=== PATIENT | female | born 1945 | race Caucasian/White ===

== ENCOUNTER 2017-12-20 10:11 | Observation (INO) | payer OTHER ==
--- NOTE | 2017-12-20 10:38 | PDOC ---
History of Present Illness - General Chief Complaint: Syncope/Near Syncope Stated Complaint: WOUND Time Seen by Provider: 12/20/17 10:38 - History of Present Illness Initial Comments: 72 year old female with PMH of HTN, HLD, assumed CAD (on plavix), and insomnia presenting 1 day after fall and head trauma. Patient states she has had a cough , depressed, appetite, and worsening general weakness for the past 1.5 days and fell yesterday morning. States she took her Ambien as well as a Benadryl two nights ago then woke up at 5 AM the next morning to use the bathroom. She felt a little weaker than normal and fell in the hallway on the way back from the bathroom and woke up face down on the floor with pain in her right and left hip and bleeding from the back of her left hip. She found broken pieces of a ceramic vase that she keeps on the floor and beleives she was cut on that. Her helped her into bed and she remained in bed all day but was able to ambulate here 12/20/17 11:15 Past History - Past Medical History Allergies/Adverse Reactions: Allergies Allergy/AdvReac Type Severity Reaction Status Date / Time No Known Allergies Allergy Verified 12/20/17 10:13 Home Medications: Ambulatory Orders Amlodipine Besylate [Norvasc -] 5 mg PO DAILY 12/20/17 Atorvastatin Calcium [Lipitor] 30 mg PO HS 12/20/17 Chlorthalidone [Hygroton -] 12.5 mg PO DAILY 12/20/17 Clopidogrel Bisulfate [Plavix] 75 mg PO DAILY 12/20/17 Fenofibrate,Micronized [Fenofibrate] 134 mg PO DAILY 12/20/17 Gabapentin 100 mg PO BID 12/20/17 Gabapentin 100 mg PO BID 12/20/17 Levothyroxine [Synthroid -] 0.05 mg PO DAILY 12/20/17 Metformin HCl [Glucophage] 500 mg PO BID 12/20/17 Metoprolol Succinate [Toprol Xl] 50 mg PO DAILY 12/20/17 Telmisartan [Micardis] 40 mg PO DAILY 12/20/17 Zolpidem Tartrate [Ambien] 10 mg PO HS 12/20/17 COPD: No Diabetes: Yes HTN: Yes Thyroid Disease: Yes - Surgical History Abdominal Surgery: Yes Cholecystectomy: Yes - Suicide/Smoking/Psychosocial Hx Smoking History: Never smoked Have you smoked in the past 12 months: No Information on smoking cessation initiated: No Hx Alcohol Use: No (rarely) Drug/Substance Use Hx: No Substance Use Type: None Review of Systems - Review of Systems Constitutional: No: Chills, Diaphoresis, Fever HEENTM: No: Blurred Vision Respiratory: Yes: Cough Cardiac (ROS): No: Chest Pain, Irregular Heart Rate, Chest Tightness ABD/GI: Yes: Poor Appetite. No: Diarrhea, Nausea, Vomiting : No: Burning, Dysuria, Discharge Musculoskeletal: Yes: Back Pain, Muscle Pain, Muscle Weakness Integumentary: Yes: Lesions. No: Bruising Neurological: Yes: Weakness. No: Headache, Numbness, Paresthesia, Unsteady Gait , Ataxia Psychiatric: No: Anxiety, Depression *Physical Exam - Vital Signs Last Vital Signs Temp Pulse Resp BP Pulse Ox 98.7 F 93 H 18 151/87 100 12/20/17 10:15 12/20/17 10:15 12/20/17 10:15 12/20/17 10:15 12/20/17 10:15 - Physical Exam General Appearance: Yes: Nourished, Appropriately Dressed. No: Apparent Distress HEENT: positive: EOMI, LUI, Normal ENT Inspection, Normal Voice Neck: positive: Trachea midline, Normal Thyroid, Supple. negative: Tender, Rigid Respiratory/Chest: positive: Lungs Clear, Normal Breath Sounds. negative: Chest Tender, Respiratory Distress, Accessory Muscle Use Cardiovascular: positive: Regular Rhythm, Regular Rate Gastrointestinal/Abdominal: positive: Normal Bowel Sounds, Flat, Soft. negative : Tender Musculoskeletal: positive: Normal Inspection. negative: CVA Tenderness Extremity: positive: Normal Capillary Refill, Normal Inspection, Normal Range of Motion Integumentary: positive: Normal Color, Dry, Warm, Other (3 cm laceration that is clean and healed but not well approximated) Neurologic: positive: deaf/hard of hearing specialist II-XII NML intact, Fully Oriented, Alert, Normal Mood/ Affect, Normal Response, Other (was able to stand but seemed weak overall). negative: Motor Strength 5/5 (4/5 globally) ED Treatment Course - LABORATORY CBC & Chemistry Diagram: 12/20/17 11:06 12/20/17 11:18 Medical Decision Making - Medical Decision Making 72 year old female with PMH of CAD, HTN, adn HLD presenting with URI symptosm s /p episode of syncope and head trauma one day prior to presentation. Head CT negative, Flu B positive. EKG demonstrating NSR, rate 87, IN 118, QTc 425, with T-wave inversion III and flattening in AVF. Troponin negative and other labs WNL. Will admit for observation with Dr. Gutierres/ Dr. Rowell for med-surg obs, fluid hydration, and possibly further syncope workup. 12/20/17 12:06 *DC/Admit/Observation/Transfer Diagnosis at time of Disposition: Influenza B - Discharge Dispostion Admit: Yes - Referrals Referrals: Becky Ramsay MD [Primary Care Provider] - - Patient Instructions - Post Discharge Activity
--- NOTE | 2017-12-20 10:40 | PDOC ---
Attending Attestation - HPI HPI: 12/20/17 12:54 The patient is a 72 year old female with a significant PMH of HTN, hyperlipidemia, Plavix use, and insomnia who presents to the emergency department s/p fall and head trauma approximately yesterday morning. The patient states she fell her hallway after leaving the bathroom and woke up face down with bilateral hip pain and left hip bleeding. The patient also states she has had cough, decreased appetite, and generalized weakness over the past 2 days. The patient denies chest pain or shortness of breath. Allergies: NKA PCP: Dr. Becky Ramsay - Physicial Exam PE: 12/20/17 12:54 Vitals: Triage Vital signs reviewed General Appearance: no acute distress, well nourished well developed, Head: Atraumatic, normocephalic Cardiac: Regular rate and rhythm, no murmurs, no rubs, no gallops, Lungs: Clear to auscultation bilateral, good air movement bilaterally, Abdomen: Soft, nondistended, normal bowel sounds, nontender to palpation Extremities: (+) 4 cm superficial laceration to left buttock. Full range of motion to all extremities, no cyanosis, clubbing, or edema Skin: Warm and dry, no rashes or lesions, no petechiae Neuro: AOX3; Cranial Nerves 2-12 grossly intact, Strength intact to all extremities, Sensation intact to all extremities Psych: normal mood, normal affect <Maverick Coello - Last Filed: 12/20/17 12:54> - Resident Resident Name: Deonte Orlando - ED Attending Attestation I have performed the following: I have examined & evaluated the patient, The case was reviewed & discussed with the resident, I agree w/resident's findings & plan, Exceptions are as noted - Medical Decision Making 12/20/17 16:30 The patient is a 72 year old female with a significant PMH of HTN, hyperlipidemia, Plavix use, and insomnia who presents to the emergency department s/p fall and head trauma approximately yesterday morning. The patient states she fell her hallway after leaving the bathroom and woke up face down with bilateral hip pain and left hip bleeding. The patient also states she has had cough, decreased appetite, and generalized weakness over the past 2 days. The patient denies chest pain or shortness of breath. We'll check labs head CT EKG cardiac enzyme observe and reassess Reevaluation patient Flu B positive. Given influenza in the context of syncope we'll observe overnight hydrates symptomatically management and reassess. <Bridger Cool - Last Filed: 12/20/17 16:31>
[2017-12-20] MEDS ORDERED: SODIUM CHLORIDE 500 ML IV STA (10:52)
[2017-12-20 11:39] LABS: BASO % 0.4 % (0-2.0); EOS % 0.4 % (0-4.5); HEMATOCRIT 38.9 % (32.4-45.2); HEMOGLOBIN 13.2 GM/dL (10.7-15.3); LYMPH % 26.9 % (8-40); MCH 30.1 pg (25.7-33.7); MCHC 33.9 g/dl (32.0-36.0); MEAN CELL VOLUME 88.8 fl (80-96); MEAN PLT VOLUME 7.3 fl (7.5-11.1); MONO % 11.2 % (3.8-10.2); NEUT % 61.1 % (42.8-82.8); PLATELET COUNT 354 K/MM3 (134-434); RBC 4.38 M/mm3 (3.60-5.2); RDW 13.6 % (11.6-15.6); WHITE BLOOD COUNT 3.3 K/mm3 (4.0-10.0)
[2017-12-20 11:43] LABS: URINE APPEARANCE CLEAR; URINE BILIRUBIN NEGATIVE (<2.0 mg/dL); URINE BLOOD NEGATIVE (NEGATIVE); URINE COLOR YELLOW; URINE GLUCOSE (UA) 3+ (NEGATIVE); URINE KETONE NEGATIVE (NEGATIVE); URINE LEUK ESTERASE NEGATIVE (NEGATIVE); URINE NITRITE NEGATIVE (NEGATIVE); URINE PROTEIN NEGATIVE (NEGATIVE); URINE UROBILINOGEN NEGATIVE mg/dL (0.2-1.0)
[2017-12-20 12:00] LABS: ALBUMIN 3.8 g/dl (3.4-5.0); ANION GAP 6 (8-16); BILIRUBIN,TOTAL 0.2 mg/dL (0.2-1.0); BLOOD UREA NITROGEN 13 mg/dL (7-18); CALCIUM 8.5 mg/dL (8.5-10.1); CHLORIDE 105 mmol/L (98-107); CO2 25 mmol/L (21-32); CREATININE 0.7 mg/dL (0.55-1.02); GLUCOSE,RANDOM 149 mg/dL (74-106); MAGNESIUM 1.7 mg/dL (1.8-2.4); PHOSPHOROUS 2.4 mg/dL (2.5-4.9); POTASSIUM 3.7 mmol/L (3.5-5.1); SGOT/AST 27 U/L (15-37); SGPT/ALT 36 U/L (12-78); SODIUM 136 mmol/L (136-145); TOT PROT 7.3 g/dl (6.4-8.2)
[2017-12-20 12:03] LABS: ALK PHOS 58 U/L (45-117); N-TERMINAL BNP 10.48 pg/ml (5-125)
[2017-12-20] MEDS ORDERED: SODIUM CHLORIDE 0.9% 500 ML INFUS.BAG IV ONE (12:27)
[2017-12-20] MEDS ORDERED: OSELTAMIVIR PHOSPHATE 75 MG CAPSULE ONE (13:24)
[2017-12-20] MEDS: OSELTAMIVIR PHOSPHATE 75 MG CAPSULE PO SCH ×2 (13:35→21:24)
[2017-12-20] MEDS ORDERED: BACITRACIN 0.9 GM PACKET ONE (16:01)
[2017-12-20 16:43] VITALS: BMI 25.9
[2017-12-20] MEDS ORDERED: DIPHTH,PERTUSS(ACELL),TET 0.5 ML DISP.SYRIN IM ONE (16:47)
[2017-12-20] MEDS: SODIUM CHLORIDE 1,000 ML IV SCH (18:13)
[2017-12-20] MEDS: ACETAMINOPHEN 325 MG TABLET (FP) PO PRN (20:09)
--- NOTE | 2017-12-20 20:22 | HP ---
Admitting History and Physical - Primary Care Physician PCP: Becky Ramsay - Admission Chief Complaint: fell down History of Present Illness: patient seen and examined on the floor. Chart reviewed Case was discussed with emergency room physician As per emergency room notes--- The patient is a 72 year old female with a significant PMH of HTN, hyperlipidemia, coronary artery disease ,diabetes, hypothyroidism, and obesity and insomnia who presents to the emergency department s/p fall and head trauma approximately yesterday morning. The patient states she fell her hallway after leaving the bathroom and woke up face down with bilateral hip pain and left hip bleeding. The patient also states she has had cough, decreased appetite, and generalized weakness over the past 2 days. The patient denies chest pain or shortness of breath. workup done in the emergency room----came back positive for influenza B Patient given fluids and Tamiflu Chest x-ray was negative as well as CT head X-rays are negative also for any fracture Patient seen and examined on the floor feels better But still weak No distress. History Source: Patient Limitations to Obtaining History: No Limitations - Past Medical History Cardiovascular: Yes: CAD. No: Aneurysm - Smoking History Smoking history: Never smoked Have you smoked in the past 12 months: No - Alcohol/Substance Use Hx Alcohol Use: No (rarely) Home Medications - Allergies Allergies/Adverse Reactions: Allergies Allergy/AdvReac Type Severity Reaction Status Date / Time No Known Allergies Allergy Verified 12/20/17 10:13 - Home Medications Home Medications: Ambulatory Orders Amlodipine Besylate [Norvasc -] 5 mg PO DAILY 12/20/17 Atorvastatin Calcium [Lipitor] 30 mg PO HS 12/20/17 Chlorthalidone [Hygroton -] 12.5 mg PO DAILY 12/20/17 Clopidogrel Bisulfate [Plavix] 75 mg PO DAILY 12/20/17 Fenofibrate,Micronized [Fenofibrate] 134 mg PO DAILY 12/20/17 Gabapentin 100 mg PO BID 12/20/17 Gabapentin 100 mg PO BID 12/20/17 Levothyroxine [Synthroid -] 0.05 mg PO DAILY 12/20/17 Metformin HCl [Glucophage] 500 mg PO BID 12/20/17 Metoprolol Succinate [Toprol Xl] 50 mg PO DAILY 12/20/17 Telmisartan [Micardis] 40 mg PO DAILY 04/30/18 Zolpidem Tartrate [Ambien] 10 mg PO HS 12/20/17 Family Disease History - Family Disease History Family History: Unremarkable Review of Systems - Review of Systems Constitutional: reports: Loss of Appetite, Malaise, Weakness Eyes: reports: No Symptoms HENT: reports: Nasal Congestion Neck: reports: No Symptoms Cardiovascular: reports: No Symptoms Respiratory: reports: No Symptoms Gastrointestinal: reports: No Symptoms Genitourinary: reports: No Symptoms Neurological: reports: No Symptoms Psychiatric: reports: No Symptoms Physical Examination Vital Signs: Vital Signs Temperature 98.8 F 12/20/17 18:17 Pulse Rate 81 12/20/17 18:17 Respiratory Rate 18 12/20/17 18:17 Blood Pressure 127/73 12/20/17 18:17 O2 Sat by Pulse Oximetry (%) 98 12/20/17 18:19 Constitutional: Yes: No Distress, Calm Eyes: Yes: Conjunctiva Clear HENT: Yes: Other (mild congestion) Neck: Yes: Supple, Other (no JVD) Cardiovascular: Yes: Regular Rate and Rhythm Respiratory: Yes: CTA Bilaterally Gastrointestinal: Yes: Soft, Abdomen, Obese. No: Splenomegaly Edema: No Neurological: Yes: Alert Psychiatric: Yes: Alert Labs: CBC, BMP 12/20/17 11:06 12/20/17 11:18 Imaging - Results Chest X-ray: Report Reviewed X-ray: Report Reviewed Cat Scan: Report Reviewed Problem List - Problems (1) Syncope Code(s): R55 - SYNCOPE AND COLLAPSE (2) Diabetes Code(s): E11.9 - TYPE 2 DIABETES MELLITUS WITHOUT COMPLICATIONS (3) Coronary artery disease Code(s): I25.10 - ATHSCL HEART DISEASE OF [place] CORONARY ARTERY W/O ANG PCTRS (4) Obesity Code(s): E66.9 - OBESITY, UNSPECIFIED (5) Hypertension Code(s): I10 - ESSENTIAL (PRIMARY) HYPERTENSION (6) Hypothyroidism Code(s): E03.9 - HYPOTHYROIDISM, UNSPECIFIED (7) Influenza B Code(s): J10.1 - FLU DUE TO OTH IDENT INFLUENZA VIRUS W OTH RESP MANIFEST Assessment/Plan syncope likely due to vasovagal due to dehydration due to influenza Droplet precautions Tamiflu Fluids Monitor electrolytes and BGM Will follow Discussed with patient
[2017-12-20] MEDS: GABAPENTIN 100 MG CAPSULE (FP) PO SCH (21:24)
[2017-12-20] MEDS: ATORVASTATIN CA 20 MG TABLET (FP) PO SCH (21:24)
[2017-12-20] MEDS: HEPARIN NA (PORCINE) 5,000 UNITS/ML 1ML VIAL SQ SCH (21:24)
--- NOTE | 2017-12-20 22:00 | EKG ---
Test Reason : Blood Pressure : / mmHG Vent. Rate : 087 BPM Atrial Rate : 087 BPM P-R Int : 118 ms QRS Dur : 080 ms QT Int : 354 ms P-R-T Axes : 035 -06 -10 degrees QTc Int : 425 ms NORMAL SINUS RHYTHM MINIMAL VOLTAGE CRITERIA FOR LVH, MAY BE NORMAL VARIANT NONSPECIFIC T WAVE ABNORMALITY ABNORMAL ECG NO PREVIOUS ECGS AVAILABLE Confirmed by ALLYSON ARGUETA MD ([id number]) on 12/20/2017 10:00:18 PM Referred By: Confirmed By:ALLYSON ARGUETA MD
[2017-12-21] MEDS: ACETAMINOPHEN 325 MG TABLET (FP) PO PRN ×4 (02:26→21:26)
[2017-12-21] MEDS: SODIUM CHLORIDE 1,000 ML IV SCH (02:29)
[2017-12-21] MEDS: LEVOTHYROXINE NA 25 MCG TABLET (FP) PO SCH (06:28)
[2017-12-21] MEDS: INSULIN SLIDING SCALE (NOVOLOG) 1 VIAL SQ SCH ×2 (06:32→17:01)
[2017-12-21 08:38] LABS: HEMATOCRIT 34.2 % (32.4-45.2); HEMOGLOBIN 11.7 GM/dL (10.7-15.3); MCH 30.3 pg (25.7-33.7); MCHC 34.2 g/dl (32.0-36.0); MEAN CELL VOLUME 88.6 fl (80-96); MEAN PLT VOLUME 7.2 fl (7.5-11.1); PLATELET COUNT 315 K/MM3 (134-434); RBC 3.86 M/mm3 (3.60-5.2); RDW 13.5 % (11.6-15.6); WHITE BLOOD COUNT 3.1 K/mm3 (4.0-10.0)
[2017-12-21 09:10] LABS: ALBUMIN 3.3 g/dl (3.4-5.0); ANION GAP 9 (8-16); BLOOD UREA NITROGEN 14 mg/dL (7-18); CALCIUM 8.6 mg/dL (8.5-10.1); CHLORIDE 107 mmol/L (98-107); CO2 25 mmol/L (21-32); CREATININE 0.5 mg/dL (0.55-1.02); GLUCOSE,RANDOM 154 mg/dL (74-106); MAGNESIUM 1.4 mg/dL (1.8-2.4); POTASSIUM 3.8 mmol/L (3.5-5.1); SGOT/AST 20 U/L (15-37); SGPT/ALT 30 U/L (12-78); SODIUM 141 mmol/L (136-145)
[2017-12-21 09:12] LABS: ALK PHOS 57 U/L (45-117); BILIRUBIN,TOTAL 0.2 mg/dL (0.2-1.0); TOT PROT 6.3 g/dl (6.4-8.2)
[2017-12-21] MEDS: GABAPENTIN 100 MG CAPSULE (FP) PO SCH ×2 (09:51→21:27)
[2017-12-21] MEDS ORDERED: PT OWN MED DRAWER 7, Y5N ONE (09:51)
[2017-12-21] MEDS: HEPARIN NA (PORCINE) 5,000 UNITS/ML 1ML VIAL SQ SCH ×2 (09:52→21:27)
[2017-12-21] MEDS: CLOPIDOGREL BISULFATE 75 MG TABLET (FP) PO SCH (09:52)
[2017-12-21] MEDS: FENOFIBRIC ACID 135 MG CAP PO SCH (09:52)
[2017-12-21] MEDS: OSELTAMIVIR PHOSPHATE 75 MG CAPSULE PO SCH ×2 (09:52→21:27)
[2017-12-21] MEDS: amLODIPine BESYLATE 5 MG TABLET (FP) PO SCH (09:52)
[2017-12-21] MEDS: CHLORTHALIDONE 25 MG TABLET PO SCH (09:52)
[2017-12-21] MEDS: VALSARTAN 160 MG TABLET (UD) PO SCH (09:52)
[2017-12-21] MEDS ORDERED: INSULIN (NOVOLOG) ASPART 100 UNITS/ML 10ML VIAL ONE (11:07)
[2017-12-21] MEDS ORDERED: ZOLPIDEM TARTRATE 5 MG TABLET PO PRN (12:14)
--- NOTE | 2017-12-21 12:14 | PN ---
Progress Note, Physician Chief Complaint: has a headache, no fevers has bodyaches decreased appetite - Current Medication List Current Medications: Active Medications Acetaminophen (Tylenol -) 650 mg PO Q4H PRN PRN Reason: PAIN LEVEL 1-5 Last Admin: 12/21/17 10:45 Dose: 650 mg Amlodipine Besylate (Norvasc -) 5 mg PO DAILY [facility] Last Admin: 12/21/17 09:52 Dose: 5 mg Atorvastatin Calcium (Lipitor -) 30 mg PO HS [facility] Last Admin: 12/20/17 21:24 Dose: 30 mg Chlorthalidone (Hygroton -) 12.5 mg PO DAILY [facility] Last Admin: 12/21/17 09:52 Dose: 12.5 mg Clopidogrel Bisulfate (Plavix -) 75 mg PO DAILY [facility] Last Admin: 12/21/17 09:52 Dose: 75 mg Fenofibric Acid (Trilipix -) 135 mg PO DAILY [facility] Last Admin: 12/21/17 09:52 Dose: 135 mg Gabapentin (Neurontin -) 100 mg PO BID [facility] Last Admin: 12/21/17 09:51 Dose: 100 mg Heparin Sodium (Porcine) (Heparin -) 5,000 unit SQ BID [facility] Last Admin: 12/21/17 09:52 Dose: 5,000 unit Insulin Aspart (Novolog Vial Sliding Scale -) 1 vial SQ BIDAC [facility] PRN Reason: Protocol Last Admin: 12/21/17 06:32 Dose: Not Given Levothyroxine Sodium (Synthroid -) 50 mcg PO 0700 [facility] Last Admin: 12/21/17 06:28 Dose: 50 mcg Magnesium Sulfate/Dextrose (Magnesium 1gm/D5w -) 1 gm IVPB Q1H [facility] Stop: 12/21/17 12:48 Metoprolol Succinate (Toprol Xl -) 50 mg PO DAILY [facility] Last Admin: 12/21/17 09:54 Dose: 50 mg Oseltamivir Phosphate (Tamiflu -) 75 mg PO BID [facility] Stop: 12/25/17 12:29 Last Admin: 12/21/17 09:52 Dose: 75 mg Valsartan (Diovan -) 160 mg PO DAILY [facility] Last Admin: 12/21/17 09:52 Dose: 160 mg - Objective Vital Signs: Vital Signs Temperature 98.9 F 12/21/17 08:39 Pulse Rate 92 H 12/21/17 08:39 Respiratory Rate 16 12/21/17 08:39 Blood Pressure 157/85 12/21/17 08:39 O2 Sat by Pulse Oximetry (%) 98 12/21/17 02:00 Constitutional: Yes: No Distress Cardiovascular: Yes: Regular Rate and Rhythm Respiratory: Yes: CTA Bilaterally Gastrointestinal: Yes: Normal Bowel Sounds, Soft. No: Tenderness Edema: No Labs: CBC, BMP 12/21/17 07:48 12/21/17 07:48 Problem List - Problems (1) Coronary artery disease Code(s): I25.10 - ATHSCL HEART DISEASE OF [place] CORONARY ARTERY W/O ANG PCTRS (2) Diabetes Code(s): E11.9 - TYPE 2 DIABETES MELLITUS WITHOUT COMPLICATIONS (3) Hypertension Code(s): I10 - ESSENTIAL (PRIMARY) HYPERTENSION (4) Hypothyroidism Code(s): E03.9 - HYPOTHYROIDISM, UNSPECIFIED (5) Influenza B Code(s): J10.1 - FLU DUE TO OTH IDENT INFLUENZA VIRUS W OTH RESP MANIFEST Assessment/Plan PLAN decrease IV fluids continue Tamiflu replace magnesium Ambien as needed for sleep Tylenol PRN for fever. aches
[2017-12-21] MEDS: MAGNESIUM 1GM/D5W 100ML - 100 ML IVPB IVPB SCH ×2 (14:10→15:13)
[2017-12-21] MEDS ORDERED: guaiFENesin/D-M SUGAR-FREE/ACLHOL-FREE 118 ML BOTTLE PO PRN (18:36)
[2017-12-21] MEDS: ATORVASTATIN CA 20 MG TABLET (FP) PO SCH (21:27)
[2017-12-22] MEDS: ACETAMINOPHEN 325 MG TABLET (FP) PO PRN (06:02)
[2017-12-22] MEDS: LEVOTHYROXINE NA 25 MCG TABLET (FP) PO SCH (06:03)
[2017-12-22] MEDS: INSULIN SLIDING SCALE (NOVOLOG) 1 VIAL SQ SCH ×2 (06:03→17:18)
[2017-12-22] MEDS ORDERED: PT OWN MED DRAWER 7, Y5N ONE (09:05)
[2017-12-22] MEDS: CHLORTHALIDONE 25 MG TABLET PO SCH (09:15)
[2017-12-22] MEDS: HEPARIN NA (PORCINE) 5,000 UNITS/ML 1ML VIAL SQ SCH (09:16)
[2017-12-22] MEDS: OSELTAMIVIR PHOSPHATE 75 MG CAPSULE PO SCH ×2 (09:16→18:53)
[2017-12-22] MEDS: VALSARTAN 160 MG TABLET (UD) PO SCH (09:16)
[2017-12-22] MEDS: amLODIPine BESYLATE 5 MG TABLET (FP) PO SCH (09:16)
[2017-12-22] MEDS: FENOFIBRIC ACID 135 MG CAP PO SCH (09:16)
[2017-12-22] MEDS: GABAPENTIN 100 MG CAPSULE (FP) PO SCH (09:16)
[2017-12-22] MEDS: CLOPIDOGREL BISULFATE 75 MG TABLET (FP) PO SCH (09:16)
[2017-12-22] MEDS: SODIUM CHLORIDE 1,000 ML IV SCH ×2 (09:17→12:27)
--- NOTE | 2017-12-22 10:46 | DS ---
Physical Examination Vital Signs: Vital Signs Temperature 98.7 F 12/22/17 08:00 Pulse Rate 77 12/22/17 08:00 Respiratory Rate 18 12/22/17 08:00 Blood Pressure 132/73 12/22/17 08:00 O2 Sat by Pulse Oximetry (%) 96 12/22/17 09:57 Constitutional: Yes: No Distress, Calm Cardiovascular: Yes: Regular Rate and Rhythm Respiratory: Yes: CTA Bilaterally Gastrointestinal: Yes: Normal Bowel Sounds, Soft. No: Tenderness Edema: No Labs: CBC, BMP 12/21/17 07:48 12/21/17 07:48 Discharge Summary Reason For Visit: INFLUENZA B; SYNCOPE AND COLLAPSE Current Active Problems Coronary artery disease (Acute) Diabetes (Acute) Hypertension (Acute) Hypothyroidism (Acute) Influenza B (Acute) Obesity (Acute) Syncope (Acute) Hospital Course: Admitted for syncope, s/p fall-- xrays negative for fracture CT head negative Found to have influenza B-- started on TAmiflu and fluids Magnesium replaced Pt is clinically better stable for dc home Condition: Improved - Instructions Referrals: Becky Ramsay MD [Primary Care Provider] - Disposition: HOME - Home Medications Comprehensive Discharge Medication List: Ambulatory Orders Amlodipine Besylate [Norvasc -] 5 mg PO DAILY 12/20/17 Atorvastatin Calcium [Lipitor] 30 mg PO HS 12/20/17 Chlorthalidone [Hygroton -] 12.5 mg PO DAILY 12/20/17 Clopidogrel Bisulfate [Plavix] 75 mg PO DAILY 12/20/17 Fenofibrate,Micronized [Fenofibrate] 134 mg PO DAILY 12/20/17 Gabapentin 100 mg PO BID 12/20/17 Gabapentin 100 mg PO BID 12/20/17 Levothyroxine [Synthroid -] 0.05 mg PO DAILY 12/20/17 Metformin HCl [Glucophage] 500 mg PO BID 12/20/17 Metoprolol Succinate [Toprol Xl] 50 mg PO DAILY 12/20/17 Telmisartan [Micardis] 40 mg PO DAILY 12/20/17 Zolpidem Tartrate [Ambien] 10 mg PO HS 12/20/17
[2017-12-22] MEDS ORDERED: MAGNESIUM 2GM/50ML STERILE WATER IVPB IVPB ONE (13:00)
[2017-12-22 14:30] VITALS: BP 134/60; PULSE 75; TEMP 98
[2017-12-22] MEDS ORDERED: MAGNESIUM OXIDE 400 MG TABLET (FP) PO SCH (22:00)
== END 2017-12-22 19:03 | disposition home or self-care (01) ==
LOC: JER 10:11 → JERBED 13:26 → J6S 17:20
PROVIDERS: ADMIT Internal Medicine; ATTEND Internal Medicine
PROC: 3E033GC Introduction of Other Therapeutic Substance into Peripheral Vein, Percutaneous Approach (ICD-10-PCS; principal; 2017-12-20)
PROC: 3E0337Z Introduction of Electrolytic and Water Balance Substance into Peripheral Vein, Percutaneous Approach (ICD-10-PCS; 2017-12-20)
PROC: 3E013GC Introduction of Other Therapeutic Substance into Subcutaneous Tissue, Percutaneous Approach (ICD-10-PCS; 2017-12-20)
DX: J10.1 Influenza due to other identified influenza virus with other respiratory manifestations (principal); R55 Syncope and collapse; E11.9 Type 2 diabetes mellitus without complications; I25.10 Atherosclerotic heart disease of native coronary artery without angina pectoris; I10 Essential (primary) hypertension; E03.9 Hypothyroidism, unspecified; E78.5 Hyperlipidemia, unspecified; G47.00 Insomnia, unspecified; Z79.01 Long term (current) use of anticoagulants; Z79.84 Long term (current) use of oral hypoglycemic drugs; E66.9 Obesity, unspecified; Z68.25 Body mass index [BMI] 25.0-25.9, adult; S09.90XA Unspecified injury of head, initial encounter; W18.39XA Other fall on same level, initial encounter; Y93.89 Activity, other specified; Y92.008 Other place in unspecified non-institutional (private) residence as the place of occurrence of the external cause
CPT/HCPCS: 36415; 70450-TC; 71045-TC-FY; 73523-TC-FY; 80053; 81003; 82550; 82962; 83735; 83880; 84100; 84484; 85025; 85027; 87804; 90715; 93005; 93010; 96372; 96374; 96376; 99285-25; G0378; J1644; J7030

== ENCOUNTER 2018-04-10 14:42 | Observation (INO) | payer OTHER ==
--- NOTE | 2018-04-10 15:05 | PDOC ---
History of Present Illness - General Chief Complaint: Weakness Stated Complaint: HYPERTENSION Time Seen by Provider: 04/10/18 15:05 History Source: Patient - History of Present Illness Initial Comments: 04/10/18 15:21 The patient is a 72 year old female with a PMH of HTN, HLD, chronic lower back pain presents to the ED following an episode of resolved chest pain. Patient states she ate lunch and suddenly felt a tight pressure light chest pain that was associated with L arm and facial numbness. Endorses associated palpitations and shortness of breath. Denies any nausea/vomiting. Pain and numbness has since resolved (cannot recall how long chest pain persisted) however patient continues to c/o palpitations. Notes many life stressors including her who has multiple medical problems and has limited mobility. Patient does follow with a conventional underwriter, Dr. Brice and notes she has a stress test scheduled for next month. No family cardiac history. Patient denies abdominal pain, diarrhea/constipation, dysuria/hematuria, recent travel or sick contacts. NKDA Surgical: B/L meniscus repair Social: denies toxic habits PMD: Dr. Martin Sutton Past History - Past Medical History Allergies/Adverse Reactions: Allergies Allergy/AdvReac Type Severity Reaction Status Date / Time No Known Allergies Allergy Verified 12/20/17 10:13 Home Medications: Ambulatory Orders Amlodipine Besylate [Norvasc -] 5 mg PO DAILY 12/20/17 Atorvastatin Calcium [Lipitor] 30 mg PO HS 12/20/17 Chlorthalidone [Hygroton -] 12.5 mg PO DAILY 12/20/17 Clopidogrel Bisulfate [Plavix] 75 mg PO DAILY 12/20/17 Fenofibrate,Micronized [Fenofibrate] 134 mg PO DAILY 12/20/17 Gabapentin 100 mg PO BID 12/20/17 Levothyroxine [Synthroid -] 0.05 mg PO DAILY 12/20/17 Metformin HCl [Glucophage] 500 mg PO BID 12/20/17 Metoprolol Succinate [Toprol Xl] 50 mg PO DAILY 12/20/17 Telmisartan [Micardis] 40 mg PO DAILY 12/20/17 Zolpidem Tartrate [Ambien] 10 mg PO HS 12/20/17 Magnesium Oxide [Magnesium] 400 mg PO BID #60 capsule 12/22/17 COPD: No DVT: No Diabetes: Yes HTN: Yes Thyroid Disease: Yes - Surgical History Abdominal Surgery: Yes Cholecystectomy: Yes - Immunization History Immunization Up to Date: Yes - Suicide/Smoking/Psychosocial Hx Smoking History: Never smoked Have you smoked in the past 12 months: No Information on smoking cessation initiated: No Hx Alcohol Use: No Drug/Substance Use Hx: No Substance Use Type: None Review of Systems - Review of Systems Constitutional: No: Chills, Fever HEENTM: No: Blurred Vision, Double Vision Respiratory: Yes: Shortness of Breath. No: Stridor, Wheezing, Hemoptysis Cardiac (ROS): Yes: Chest Pain. No: Lightheadedness, Palpitations, Syncope ABD/GI: No: Constipated, Diarrhea, Nausea, Vomiting, Abdominal cramping : No: Burning, Dysuria *Physical Exam - Vital Signs Last Vital Signs Temp Pulse Resp BP Pulse Ox 98.0 F 121 H 16 115/62 100 04/10/18 14:42 04/10/18 14:42 04/10/18 14:42 04/10/18 14:42 04/10/18 14:42 - Physical Exam General Appearance: Yes: Nourished, Appropriately Dressed HEENT: positive: Normal Voice, Hearing Grossly Normal Neck: positive: Trachea midline, Supple Respiratory/Chest: positive: Lungs Clear, Normal Breath Sounds. negative: Crackles, Rales, Rhonchi, Stridor, Wheezing Cardiovascular: positive: S1, S2, Tachycardia. negative: Edema, JVD Gastrointestinal/Abdominal: positive: Normal Bowel Sounds, Soft. negative: Distended, Guarding, Rebound, Tenderness, Hernia, Mass Musculoskeletal: negative: CVA Tenderness (R), CVA Tenderness (L) Extremity: positive: Normal Capillary Refill, Normal Inspection Integumentary: positive: Normal Color, Dry, Warm Neurologic: positive: Fully Oriented, Alert ED Treatment Course - LABORATORY CBC & Chemistry Diagram: 04/10/18 15:40 04/10/18 15:40 Medical Decision Making - Medical Decision Making 04/10/18 18:42 72 year old female with resolved chest pain. H/o CAD. Frontal diagnosis: ACS, PE, PNA, costochondritis, MSK. Will obtain basic labs, Troponin, CTA. Reassess. ECG shows HR 115, no LAURA/STD, TWI in V3, c/w ECG dated 12/20/17. CXR shows no cardiomegaly, effusion, infiltrate/consolidation. Labs, CTA pending. 04/10/18 21:18 Troponin (-) x1 CTA negative for PE. Given patient's history will admit for further evaluation. Case discussed with patient and family @ bedside, amenable to admission. Patient admitted to inpatient medicine service Clinical Impression: Atypical chest pain *DC/Admit/Observation/Transfer Diagnosis at time of Disposition: Chest pain - Discharge Dispostion Condition at time of disposition: Fair Decision to Admit order: No - Referrals Referrals: Prashant Rowell MD [Primary Care Provider] - - Patient Instructions - Post Discharge Activity
[2018-04-10 15:14] VITALS: BMI 26.3
--- NOTE | 2018-04-10 15:35 | PDOC ---
Attending Attestation - Resident Resident Name: Jacquelyn Gao - ED Attending Attestation I have performed the following: I have examined & evaluated the patient, The case was reviewed & discussed with the resident, I agree w/resident's findings & plan, Exceptions are as noted - HPI HPI: 04/10/18 18:55 The patient is a 72 year old female, brought in by EMS, with past medical history of hypertension, hyperlipidemia and CAD who presents to the ED with sudden onset of chest tightness a/w LUE and periorbital numbness after eating lunch today. She reports her heart began to race and she became short of breath. Denies any loss of consciousness, headache, or other focal neurological deficits. Denies any fevers, chills, cough, nausea, vomiting, or urinary complaints. Denies recent travel. - Physicial Exam PE: 04/10/18 19:03 GENERAL: Awake, alert, and fully oriented, in no acute distress HEAD: No signs of trauma EYES: PERRLA, EOMI, sclera anicteric, conjunctiva clear ENT: Auricles normal inspection, hearing grossly normal, nares patent, oropharynx clear without exudates. Moist mucosa NECK: Normal ROM, supple, no lymphadenopathy, JVD, or masses LUNGS: Breath sounds equal, clear to auscultation bilaterally. No wheezes, and no crackles HEART: Regular rate and rhythm, normal S1 and S2, no murmurs, rubs or gallops ABDOMEN: Soft, nontender, normoactive bowel sounds. No guarding, no rebound. No masses EXTREMITIES: Normal range of motion, no edema. No clubbing or cyanosis. No cords, erythema, or tenderness NEUROLOGICAL: Normal speech, cranial nerves intact, negative pronator drift, 5/ 5 strength in all 4 extremities, normal sensation to light touch in all 4 extremities, normal cerebellar exam, normal gait, normal reflexes and tone SKIN: Warm, Dry, normal turgor, no rashes or lesions noted. - Medical Decision Making 04/10/18 19:03 72yo F hx MMP including CAD presents with CP. DDx includes ACS vs PE vs PNA vs MSK pain. HS is 5. Plan: -labs -XR -CTA -admit Case signed out to overnight attending for further mgmt Heart Score/ECG Review - History History: Moderately suspicious - Electrocardiogram EKG: Non specific repolarization disturbance - Age Age: >/= 65 - Risk Factors Based on the list above the patient has:: >/=3 risk factors or Hx atherosclerotic disease - Troponin Troponin: </= normal limit - Score Heart Score - Total: 6 #1 04/10/18 19:07 Twelve-lead EKG was performed and reviewed by me. Sinus tachycardia, rate 1:15. Normal axis. No ST elevations. T wave inversion in leads 3, aVF.
[2018-04-10 16:22] LABS: BASO % 0.5 % (0-2.0); EOS % 0.3 % (0-4.5); HEMATOCRIT 39.2 % (32.4-45.2); HEMOGLOBIN 13.1 GM/dL (10.7-15.3); LYMPH % 14.6 % (8-40); MCH 29.8 pg (25.7-33.7); MCHC 33.5 g/dl (32.0-36.0); MEAN PLT VOLUME 7.9 fl (7.5-11.1); MONO % 4.5 % (3.8-10.2); NEUT % 80.1 % (42.8-82.8); PLATELET COUNT 378 K/MM3 (134-434); RBC 4.41 M/mm3 (3.60-5.2); RDW 13.4 % (11.6-15.6); WHITE BLOOD COUNT 9.8 K/mm3 (4.0-10.0)
[2018-04-10 16:56] LABS: ALBUMIN 3.9 g/dl (3.4-5.0); ANION GAP 13 (8-16); BLOOD UREA NITROGEN 21 mg/dL (7-18); CALCIUM 9.6 mg/dL (8.5-10.1); CHLORIDE 106 mmol/L (98-107); CO2 23 mmol/L (21-32); CREATININE 0.8 mg/dL (0.55-1.02); GLUCOSE,RANDOM 156 mg/dL (74-106); MAGNESIUM 1.6 mg/dL (1.8-2.4); POTASSIUM 4.9 mmol/L (3.5-5.1); SGOT/AST 17 U/L (15-37); SGPT/ALT 31 U/L (12-78); SODIUM 142 mmol/L (136-145)
[2018-04-10 17:01] LABS: ALK PHOS 81 U/L (45-117); BILIRUBIN,TOTAL 0.2 mg/dL (0.2-1.0); N-TERMINAL BNP 48.38 pg/ml (5-125); TOT PROT 7.2 g/dl (6.4-8.2)
--- NOTE | 2018-04-10 20:17 | HP ---
CHIEF COMPLAINT: Chest Pain PCP: Dr. Prashant Rowell HISTORY OF PRESENT ILLNESS: This is a 72 y/o woman with a past medical history of CAD, HTN, HLD, DM, Hypothyroidism. Who presents to the ED with chest pressure, numbness to her left fingers. Patient reports after having lunch she began to have chest pressure with numbness radiating to her jaw, left arm and fingers. The patient reports not feeling like herself, with increased fatigue. Patient reports her subjective BP at home was 180/95, then she took a NTG sl. She reports her repeat BP was 170/83 taking a second NTG sl. She reports having her daughter call EMS and on their arrival her BP was 130/63. Patient reports on her arrival to the ED her chest pressure resolved. Patient denies fever, chills, cough, AP, V/D, constipation, dysuria. ER course was notable for: (1) Troponin < 0.02 (2) Mg 1.6 (3) CTA- pending Recent Travel: None PAST MEDICAL HISTORY: See HPI PAST SURGICAL HISTORY: Social History: Smoking: Never Alcohol: None Drugs: None Family History: Allergies No Known Allergies Allergy (Verified 12/20/17 10:13) HOME MEDICATIONS: Home Medications Medication Instructions Recorded Amlodipine Besylate [Norvasc -] 5 mg PO DAILY 12/20/17 Atorvastatin Calcium [Lipitor] 30 mg PO HS 12/20/17 Chlorthalidone [Hygroton -] 12.5 mg PO DAILY 12/20/17 Clopidogrel Bisulfate [Plavix] 75 mg PO DAILY 12/20/17 Fenofibrate,Micronized 134 mg PO DAILY 12/20/17 [Fenofibrate] Gabapentin 100 mg PO BID 12/20/17 Levothyroxine [Synthroid -] 0.05 mg PO DAILY 12/20/17 Metformin HCl [Glucophage] 500 mg PO BID 12/20/17 Metoprolol Succinate [Toprol Xl] 50 mg PO DAILY 12/20/17 Telmisartan [Micardis] 40 mg PO DAILY 12/20/17 Zolpidem Tartrate [Ambien] 10 mg PO HS 12/20/17 Magnesium Oxide [Magnesium] 400 mg PO BID #60 capsule 12/22/17 REVIEW OF SYSTEMS CONSTITUTIONAL: Absent: fever, chills, diaphoresis, generalized weakness, malaise, loss of appetite, weight change HEENT: Absent: rhinorrhea, nasal congestion, throat pain, throat swelling, difficulty swallowing, mouth swelling, ear pain, eye pain, visual changes CARDIOVASCULAR: chest pain Absent: chest pain, syncope, palpitations, irregular heart rate, lightheadedness , peripheral edema RESPIRATORY: Absent: cough, shortness of breath, dyspnea with exertion, orthopnea, wheezing, stridor, hemoptysis GASTROINTESTINAL:nausea Absent: abdominal pain, abdominal distension, vomiting, diarrhea, constipation, melena, hematochezia GENITOURINARY: Absent: dysuria, frequency, urgency, hesitancy, hematuria, flank pain, genital pain MUSCULOSKELETAL: Absent: myalgia, arthralgia, joint swelling, back pain, neck pain SKIN: Absent: rash, itching, pallor HEMATOLOGIC/IMMUNOLOGIC: Absent: easy bleeding, easy bruising, lymphadenopathy, frequent infections ENDOCRINE: Absent: unexplained weight gain, unexplained weight loss, heat intolerance, cold intolerance NEUROLOGIC: headache, paresthesias Absent: focal weakness, dizziness, unsteady gait, seizure, mental status changes , bladder or bowel incontinence PSYCHIATRIC: Absent: anxiety, depression, suicidal or homicidal ideation, hallucinations. PHYSICAL EXAMINATION Vital Signs - 24 hr 04/10/18 14:42 Temperature 98.0 F Pulse Rate 121 H Respiratory 16 Rate Blood Pressure 115/62 O2 Sat by Pulse 100 Oximetry (%) GENERAL: Awake, alert, and fully oriented, in no acute distress. HEAD: Normal with no signs of trauma. EYES: Pupils equal, round and reactive to light, extraocular movements intact, sclera anicteric, conjunctiva clear. No lid lag. EARS, NOSE, THROAT: Ears normal, nares patent, oropharynx clear without exudates. Moist mucous membranes. NECK: Normal range of motion, supple without lymphadenopathy, JVD, or masses. LUNGS: Breath sounds equal, clear to auscultation bilaterally. No wheezes, and no crackles. No accessory muscle use. HEART: Regular rate and rhythm, normal S1 and S2 without murmur, rub or gallop. ABDOMEN: Soft, nontender, not distended, normoactive bowel sounds, no guarding, no rebound, no masses. No hepatomegaly or splenomegaly. MUSCULOSKELETAL: Normal range of motion at all joints. No bony deformities or tenderness. No CVA tenderness. UPPER EXTREMITIES: 2+ pulses, warm, well-perfused. No cyanosis. No clubbing. No peripheral edema. LOWER EXTREMITIES: 2+ pulses, warm, well-perfused. No calf tenderness. No peripheral edema. NEUROLOGICAL: Cranial nerves II-XII intact. Normal speech. Gait not observed PSYCHIATRIC: Cooperative. Good eye contact. Appropriate mood and affect. SKIN: Warm, dry, normal turgor, no rashes or lesions noted, normal capillary refill. Laboratory Results - last 24 hr 04/10/18 04/10/18 04/10/18 15:40 15:40 15:40 WBC 9.8 RBC 4.41 Hgb 13.1 Hct 39.2 MCV 89.0 MCH 29.8 MCHC 33.5 RDW 13.4 Plt Count 378 MPV 7.9 Absolute Neuts (auto) 7.9 Neutrophils % 80.1 D Lymphocytes % 14.6 D Monocytes % 4.5 Eosinophils % 0.3 Basophils % 0.5 Nucleated RBC % 0 Sodium 142 Potassium 4.9 Chloride 106 Carbon Dioxide 23 Anion Gap 13 BUN 21 H Creatinine 0.8 Creat Clearance w eGFR > 60 Random Glucose 156 H Calcium 9.6 Magnesium 1.6 L Total Bilirubin 0.2 AST 17 ALT 31 Alkaline Phosphatase 81 Creatine Kinase 58 Troponin I < 0.02 B-Natriuretic Peptide 48.38 Total Protein 7.2 Albumin 3.9 ASSESSMENT/PLAN: 72 y/o woman with PMHx of CAD, HTN, DM, Hypothyroidism placed in Tele Observation for Chest Pain r/o ACS for further evaluation of their emergent condition. Plan: FEN - PO Fluids as tolerated - Mg repleted, continue to monitor - Low Na, Diabetic Diet DVT ppx - OOB - SCDs - Consider AC if LOS > 48 hrs Code Status: Full Code Dispo: Observation Problem List - Problem (1) Chest pain Assessment/Plan: - r/o ACS - HEART Score 5 - ANTONIA Score III - Cardiac monitoring - Serial Enzymes - Appreciate Cardiology consult - Continue Asa, BB - EKG- reviewed - WELLs Score 4.5 - CTA r/o PE-neg for PE - Echo in am - Lipid panel, CBC, BMP in am Code(s): R07.9 - CHEST PAIN, UNSPECIFIED (2) Coronary artery disease Assessment/Plan: - stable - Continue BB, Asa, Plavix, Statins Code(s): I25.10 - ATHSCL HEART DISEASE OF [place] CORONARY ARTERY W/O ANG PCTRS (3) Hypomagnesemia Assessment/Plan: - Repleted with Mag Sulfate in ED - Repeat Mg level in am - Continue home med Code(s): E83.42 - HYPOMAGNESEMIA (4) Diabetes Assessment/Plan: - controlled - BGMs - ISS - Hold Metformin secondary to CTA with IV contrast - Monitor renal function Code(s): E11.9 - TYPE 2 DIABETES MELLITUS WITHOUT COMPLICATIONS (5) Hypertension Assessment/Plan: - well controlled - Monitor BP - Continue home meds with parameters Code(s): I10 - ESSENTIAL (PRIMARY) HYPERTENSION (6) Hypothyroidism Assessment/Plan: - TSH in am - Continue Levothyroxine Code(s): E03.9 - HYPOTHYROIDISM, UNSPECIFIED Visit type - Emergency Visit Emergency Visit: Yes ED Registration Date: 04/10/18 Care time: The patient presented to the Emergency Department on the above date and was hospitalized for further evaluation of their emergent condition. - New Patient This patient is new to me today: Yes Date on this admission: 04/10/18 - Critical Care Critical Care patient: No Hospitalist Screening - Colonoscopy Questionnaire Colonoscopy Questionnaire: Colonoscopy Questionnaire - Patient: 50 - 75 years old and never had a screening colonoscopy: No History of colon or rectal polyps, or CA: No History of IBD, Crohn's disease or UC: No History of abdominal radiation therapy as a child: No - Relative: 1 with colon or rectal CA, or polyps at age 60 or younger: No Colon or rectal CA diagnosed at age 45 or younger: No Multiple relatives with colon or rectal CA: No - Outcome: Screening Result: Negative Screen
[2018-04-10] MEDS ORDERED: ATORVASTATIN CA 10 MG TABLET (FP) PO SCH (22:00)
[2018-04-10] MEDS ORDERED: ZOLPIDEM TARTRATE 5 MG TABLET PO PRN (22:00)
[2018-04-10] MEDS ORDERED: ZOLPIDEM TARTRATE 5 MG TABLET ONE (22:33)
[2018-04-10] MEDS ORDERED: GABAPENTIN 100 MG CAPSULE (FP) ONE (22:34)
[2018-04-10] MEDS ORDERED: MAGNESIUM OXIDE 400 MG TABLET (FP) ONE (22:34)
[2018-04-10] MEDS ORDERED: ATORVASTATIN CA 10 MG TABLET (FP) ONE (22:36)
[2018-04-10] MEDS: MAGNESIUM OXIDE 400 MG TABLET (FP) PO SCH (22:44)
[2018-04-10] MEDS: GABAPENTIN 100 MG CAPSULE (FP) PO SCH (22:44)
[2018-04-11] MEDS ORDERED: ACETAMINOPHEN 325 MG TABLET (FP) PO ONE (00:45)
[2018-04-11] MEDS ORDERED: LEVOTHYROXINE NA 50 MCG TABLET (FP) PO SCH (07:00)
[2018-04-11] MEDS ORDERED: INSULIN SLIDING SCALE (NOVOLOG) 1 VIAL SQ SCH (07:00)
[2018-04-11 07:58] LABS: BASO % 0.4 % (0-2.0); HEMATOCRIT 35.5 % (32.4-45.2); HEMOGLOBIN 12.2 GM/dL (10.7-15.3); LYMPH % 26.6 % (8-40); MCH 30.3 pg (25.7-33.7); MCHC 34.5 g/dl (32.0-36.0); MEAN PLT VOLUME 7.4 fl (7.5-11.1); MONO % 7.4 % (3.8-10.2); NEUT % 64.6 % (42.8-82.8); PLATELET COUNT 354 K/MM3 (134-434); RBC 4.03 M/mm3 (3.60-5.2); RDW 13.7 % (11.6-15.6); WHITE BLOOD COUNT 7.2 K/mm3 (4.0-10.0)
[2018-04-11 08:09] LABS: CHLORIDE 105 mmol/L (98-107); SODIUM 140 mmol/L (136-145)
[2018-04-11 08:23] LABS: ANION GAP 7 (8-16); BLOOD UREA NITROGEN 15 mg/dL (7-18); CHOLESTEROL 192 mg/dL (50-200); CO2 28 mmol/L (21-32); CREATININE 0.6 mg/dL (0.55-1.02); GLUCOSE,RANDOM 138 mg/dL (74-106); HDL CHOLESTEROL 37 mg/dL (40-60); TRIGLYCERIDES 257 mg/dL (35-160)
--- NOTE | 2018-04-11 08:59 | CON.CARD ---
Consult Consult Specialty:: cardiology Reason for Consultation:: chest pain - History of Present Illness Chief Complaint: Pt A&Ox3; anxiious ("stress" at home); no chest pain or palpitations presently. History of Present Illness: The patient is a 72 year old female with a PMH of HTN, HLD, chronic lower back pain presents to the ED following an episode of resolved chest pain. Patient states she ate lunch and suddenly felt a tight pressure light chest pain that was associated with L arm and facial numbness. Endorses associated palpitations and shortness of breath. Denies any nausea/vomiting. Pain and numbness has since resolved (cannot recall how long chest pain persisted) however patient continues to c/o palpitations. Notes many life stressors including her who has multiple medical problems and has limited mobility. No family cardiac history. Pt was seen in our office, and is scheduled for a stress test in the near future. Patient denies abdominal pain, diarrhea/constipation, dysuria/hematuria, recent travel or sick contacts. NKDA Surgical: B/L meniscus repair Social: denies toxic habits PMD: Dr. Martin Sutton - Past Medical History Cardio/Vascular: Yes: CAD. No: Aneurysm - Alcohol/Substance Use Hx Alcohol Use: No - Smoking History Smoking history: Never smoked Have you smoked in the past 12 months: No Home Medications - Allergies Allergies/Adverse Reactions: Allergies Allergy/AdvReac Type Severity Reaction Status Date / Time No Known Allergies Allergy Verified 12/20/17 10:13 - Home Medications Home Medications: Ambulatory Orders Amlodipine Besylate [Norvasc -] 5 mg PO DAILY 12/20/17 Atorvastatin Calcium [Lipitor] 30 mg PO HS 12/20/17 Chlorthalidone [Hygroton -] 12.5 mg PO DAILY 12/20/17 Clopidogrel Bisulfate [Plavix] 75 mg PO DAILY 12/20/17 Fenofibrate,Micronized [Fenofibrate] 134 mg PO DAILY 12/20/17 Gabapentin 100 mg PO BID 12/20/17 Levothyroxine [Synthroid -] 0.05 mg PO DAILY 12/20/17 Metformin HCl [Glucophage] 500 mg PO BID 12/20/17 Metoprolol Succinate [Toprol Xl] 50 mg PO DAILY 12/20/17 Telmisartan [Micardis] 40 mg PO DAILY 12/20/17 Zolpidem Tartrate [Ambien] 10 mg PO HS 12/20/17 Magnesium Oxide [Magnesium] 400 mg PO BID #60 capsule 12/22/17 Vital Signs: Vital Signs Temperature 97.9 F 04/11/18 06:00 Pulse Rate 76 04/11/18 06:00 Respiratory Rate 19 04/11/18 06:00 Blood Pressure 120/59 04/11/18 06:00 O2 Sat by Pulse Oximetry (%) 99 04/11/18 01:01 - Other Data Labs, Other Data: CBC, BMP 04/11/18 06:30 04/11/18 06:30 Troponin, BNP 04/10/18 04/10/18 04/10/18 15:40 15:40 22:40 Troponin I < 0.02 < 0.02 B-Natriuretic Peptide 48.38 04/11/18 06:30 Troponin I < 0.02 B-Natriuretic Peptide Troponin, BNP 04/10/18 04/10/18 04/10/18 15:40 15:40 22:40 Troponin I < 0.02 < 0.02 B-Natriuretic Peptide 48.38 04/11/18 06:30 Troponin I < 0.02 B-Natriuretic Peptide Problem List - Problems (1) [place] cardiac risk >20% in next 10 years Assessment/Plan: TNI < 0.02 x 3 ECHO: normal LVEF; Elevated lipids. Plan for stress treadmill MIBI. Code(s): Z91.89 - [facility] PERSONAL RISK FACTORS, NOT ELSEWHERE CLASSIFIED
--- NOTE | 2018-04-11 09:31 | EKG ---
Test Reason : Blood Pressure : / mmHG Vent. Rate : 115 BPM Atrial Rate : 115 BPM P-R Int : 122 ms QRS Dur : 082 ms QT Int : 316 ms P-R-T Axes : 039 007 007 degrees QTc Int : 437 ms SINUS TACHYCARDIA NONSPECIFIC T WAVE ABNORMALITY ABNORMAL ECG WHEN COMPARED WITH ECG OF 20-DEC-2017 11:55, NO SIGNIFICANT CHANGE WAS FOUND Confirmed by ISRA LORENZO MD ([id number]) on 04/11/2018 9:30:44 AM Referred By: Confirmed By:ISRA LORENZO MD
[2018-04-11] MEDS ORDERED: VALSARTAN 160 MG TABLET (UD) PO SCH (10:00)
[2018-04-11] MEDS ORDERED: CLOPIDOGREL BISULFATE 75 MG TABLET (FP) PO SCH (10:00)
[2018-04-11] MEDS ORDERED: amLODIPine BESYLATE 5 MG TABLET (FP) PO SCH (10:00)
[2018-04-11] MEDS ORDERED: CHLORTHALIDONE 25 MG TABLET PO SCH (10:00)
[2018-04-11] MEDS ORDERED: FENOFIBRIC ACID 135 MG CAP PO SCH (10:00)
--- NOTE | 2018-04-11 12:18 | ECHO ---
Name: SOPHY BANERJEE Exam:Adult Echocardiogram Study Date: 04/11/2018 08:45 AM Age: 72 yrs Reason For Study: Chest pain Height: 62 in Weight: 141 lb BSA: 1.6 m2 MMode/2D Measurements & Calculations IVSd: 0.84 cm Ao root diam: 2.9 cm LVIDd: 4.3 cm LA dimension: 3.6 cm LVIDs: 2.7 cm ACS: 1.7 cm LVPWd: 0.80 cm IVSs: 1.1 cm LVPWs: 1.1 cm EDV(Teich): 81.6 ml ESV(Teich): 27.5 ml Doppler Measurements & Calculations MV E max jacinto: 78.5 cm/sec Ao V2 max: 156.1 cm/sec MV A max jacinto: 87.1 cm/sec Ao max P.7 mmHg MV E/A: 0.90 Ao V2 mean: 111.3 cm/sec Ao mean P.6 mmHg Ao V2 VTI: 29.8 cm Med Peak E' Jacinto: 8.3 cm/sec Med E/e': 9.4 Lat Peak E' Jacinto: 9.1 cm/sec Lat E/e': 8.6 Procedure The study was technically good with many images being of high quality. Left Ventricle The left ventricular size, thickness and function are normal. Ejection Fraction = 65-70%. Grade I leatha stolic dysfunction, (abnormal relaxation pattern). Right Ventricle The right ventricle is normal in size and function. Atria Normal left and right atrial size and function. Mitral Valve The mitral valve is grossly normal. There is mild mitral annular calcification. There is trace mitral regurgitation. Tricuspid Valve The tricuspid valve is not well visualized. There is trace tricuspid regurgitation. There was insuffi cient TR detected to calculate RV systolic pressure. Aortic Valve The aortic valve opens well. There is mild aortic sclerosis.;. The aortic valve is trileaflet. No aor tic regurgitation is present. Pulmonic Valve The pulmonic valve is not well visualized. There is no pulmonic valvular regurgitation. Great Vessels The aortic root is normal size. Pericardium/Pleura There is no pericardial effusion. Interpretation Summary There is no comparison study available. The left ventricular size, thickness and function are normal The right ventricle is normal in size and function. There is mild mitral annular calcification. There is mild aortic sclerosis.; There is trace mitral regurgitation. Grade I diastolic dysfunction, (abnormal relaxation pattern). There is trace tricuspid regurgitation. Dominic Landa MD 04/11/2018 12:18 PM
[2018-04-11] MEDS ORDERED: PT OWN MED DRAWER 7, Y5N ONE (13:15)
[2018-04-11] MEDS: GABAPENTIN 100 MG CAPSULE (FP) PO SCH (14:45)
[2018-04-11] MEDS: MAGNESIUM OXIDE 400 MG TABLET (FP) PO SCH (14:45)
--- NOTE | 2018-04-11 17:08 | DS ---
Physical Examination Vital Signs: Vital Signs Temperature 97.9 F 04/11/18 06:00 Pulse Rate 76 04/11/18 06:00 Respiratory Rate 19 04/11/18 08:59 Blood Pressure 120/59 04/11/18 06:00 O2 Sat by Pulse Oximetry (%) 98 04/11/18 08:59 Findings/Remarks: pt seen/ examined chart reviewed comfortable no complains Constitutional: Yes: No Distress, Calm Eyes: Yes: Conjunctiva Clear Neck: Yes: Supple Cardiovascular: Yes: Regular Rate and Rhythm Respiratory: Yes: CTA Bilaterally Gastrointestinal: Yes: Soft Edema: No Neurological: Yes: Alert Psychiatric: Yes: Alert Labs: CBC, BMP 04/11/18 06:30 04/11/18 06:30 Discharge Summary Reason For Visit: CHEST PAINS Current Active Problems Chest pain (Acute) [place] cardiac risk >20% in next 10 years (Acute) Hypomagnesemia (Acute) Hospital Course: Admitted for cp. TX ruled out Stress test -ve d/c home f/u in office meds reviewed/ reconcilled pt in agreement Condition: Fair - Instructions Referrals: Prashant Rowell MD [Primary Care Provider] - Disposition: HOME - Home Medications Comprehensive Discharge Medication List: Ambulatory Orders Amlodipine Besylate [Norvasc -] 5 mg PO DAILY 12/20/17 Atorvastatin Calcium [Lipitor] 30 mg PO HS 12/20/17 Chlorthalidone [Hygroton -] 12.5 mg PO DAILY 12/20/17 Clopidogrel Bisulfate [Plavix] 75 mg PO DAILY 12/20/17 Fenofibrate,Micronized [Fenofibrate] 134 mg PO DAILY 12/20/17 Gabapentin 100 mg PO BID 12/20/17 Levothyroxine [Synthroid -] 0.05 mg PO DAILY 12/20/17 Metformin HCl [Glucophage] 500 mg PO BID 12/20/17 Metoprolol Succinate [Toprol Xl] 50 mg PO DAILY 12/20/17 Telmisartan [Micardis] 40 mg PO DAILY 12/20/17 Zolpidem Tartrate [Ambien] 10 mg PO HS 12/20/17 Magnesium Oxide [Magnesium] 400 mg PO BID #60 capsule 12/22/17
[2018-04-11 18:16] VITALS: BP 142/71; PULSE 81; TEMP 98.3
== END 2018-04-11 19:13 | disposition home or self-care (01) ==
LOC: JER 14:42 → JERBED 19:46 → J4W 04-11 00:49
PROVIDERS: ADMIT Internal Medicine; ATTEND Internal Medicine
DX: R07.9 Chest pain, unspecified (principal); I10 Essential (primary) hypertension; I25.10 Atherosclerotic heart disease of native coronary artery without angina pectoris; E78.5 Hyperlipidemia, unspecified; E11.9 Type 2 diabetes mellitus without complications; E03.9 Hypothyroidism, unspecified; E83.42 Hypomagnesemia; M54.5 Low back pain; G89.29 Other chronic pain; Z79.84 Long term (current) use of oral hypoglycemic drugs
CPT/HCPCS: 36415; 71045-TC-FY; 71275-TC; 78452-TC; 80048; 80053; 80061; 82550; 82962; 83721; 83735; 83880; 84443; 84484; 85025; 93005; 93010; 93017; 93306-TC; 99285-25; A9502; G0378

== ENCOUNTER 2019-06-13 13:26 | Observation (INO) | payer OTHER ==
[2019-06-13] MEDS ORDERED: MECLIZINE HCL 25 MG TABLET (FP) PO ONE (14:21)
[2019-06-13] MEDS ORDERED: MECLIZINE HCL 25 MG TABLET (FP) ONE (14:28)
[2019-06-13 14:40] LABS: BASO % 0.4 % (0-2.0); EOS % 0.6 % (0-4.5); HEMATOCRIT 37.3 % (32.4-45.2); HEMOGLOBIN 12.6 GM/dL (10.7-15.3); LYMPH % 14.5 % (8-40); MCH 29.9 pg (25.7-33.7); MCHC 33.7 g/dl (32.0-36.0); MEAN CELL VOLUME 88.7 fl (80-96); MEAN PLT VOLUME 7.1 fl (7.5-11.1); MONO % 4.1 % (3.8-10.2); NEUT % 80.4 % (42.8-82.8); PLATELET COUNT 430 K/MM3 (134-434); RBC 4.21 M/mm3 (3.60-5.2); RDW 13.5 % (11.6-15.6); WHITE BLOOD COUNT 8.2 K/mm3 (4.0-10.0)
--- NOTE | 2019-06-13 14:45 | EKG ---
Test Reason : Blood Pressure : / mmHG Vent. Rate : 107 BPM Atrial Rate : 107 BPM P-R Int : 138 ms QRS Dur : 084 ms QT Int : 334 ms P-R-T Axes : 030 -03 038 degrees QTc Int : 445 ms SINUS TACHYCARDIA OTHERWISE NORMAL ECG WHEN COMPARED WITH ECG OF 10-APR-2018 14:56, NONSPECIFIC T WAVE ABNORMALITY, IMPROVED IN INFERIOR LEADS Confirmed by Morris Burnett ([id number]) on 06/13/2019 2:44:43 PM Referred By: Confirmed By:Morris Burnett
[2019-06-13] MEDS ORDERED: LACTATED RINGERS SOLUTION 1000 ML INFUS.BAG IV ONE (15:00)
[2019-06-13 15:11] LABS: ALBUMIN 3.9 g/dl (3.4-5.0); BILIRUBIN,TOTAL 0.3 mg/dL (0.2-1); BLOOD UREA NITROGEN 24.8 mg/dL (7-18); CALCIUM 9.3 mg/dL (8.5-10.1); CREATININE 0.7 mg/dL (0.55-1.3); POTASSIUM 4.4 mmol/L (3.5-5.1); TOT PROT 7.3 g/dl (6.4-8.2)
--- NOTE | 2019-06-13 15:33 | PDOC ---
History of Present Illness - General Stated Complaint: NAUSEOUS/ VOMITING Time Seen by Provider: 06/13/19 13:51 - History of Present Illness Initial Comments: HPI: 73 y/o female presenting to [facility] ER complaining of sudden onset of dizziness with nausea and vomiting. The dizziness is worse when she opens her eyes and when she changes position. She was preparing lunch when it started. Endorses remote history of a single similar episode. Pt has followed with a neurologist but not recently. Cannot given any further details about neurologic conditions. Pt denies recent illness. Denies recent changes in medications. Medical Hx: - Hypothyroidism - HTN - Non-insulin dependent diabetes - CAD, on Plavix - Sleep Apnea Surgical Hx: - Cholecystectomy Review of Systems: In addition to that documented in the HPI above, the additional ROS was obtained : Constitutional- Denies fevers or chills Head- Endorses sensation of room spinning ENMT- Denies sore throat CV- Denies chest pain or palpitations Resp- Denies SOB GI- Endorses single episode of emesis. Denies diarrhea or abd pain - Denies painful urination, hematuria, or increased urinary frequency MSK- Denies recent trauma Skin- Denies new rashes Neuro- Endorses generalized weakness. Denies new numbness or tingling or focal weakness Endocrine- Denies polyuria Heme- Denies bleeding or bruising Physical Examination: Constitutional- Well-developed, well-nourished adult female in no acute distress but obvious mild discomfort. Found semi-fowlers on hospital bed. Answered all questions appropriately and completely. Head- Normocephalic. No obvious external signs of trauma. Eyes- Pupils 3mm and PERRL bilaterally. EOMI. No vertical or horizontal nystagmus. Sclerae white. Conjunctiva moist and not injected. Ears- Hearing grossly intact. Nose- No nasal discharge. Throat- Oral cavity and pharynx normal. No inflammation, swelling, exudate, or lesions. Moist mucosal membranes. Neck- Supple, trachea is midline. Cardiovascular / Chest- Tachycardic rate with regular rhythm. No murmur, rubs, clicks, or gallops. Peripheral pulses- radial pulses full. Respiratory- Breathing unlabored. Equal chest rise and fall. Clear to auscultation bilaterally. No stridor, no wheezing, no rhonchi. Gastrointestinal- abdomen is soft, non-tender, non-distended. Neuro- Alert and oriented x4. Moving all four extremities spontaneously. No drift in upper or lower extremities. Would not participate with finger to nose, rapid alternating movements, or gait testing. Skin- Warm, dry, and intact. Psych- Affect- tearful. Mood- normal. Speech was non-labored, non-pressured. MDM: *Reviewed vital signs, nursing notes, and prior visit documentation (if available). 73 y/o female presenting with sudden onset of dizziness made worse with position and eye opening. Remote history of similar episode. Afebrile. Vitals remarkable for tachycardia without hypotension. Ordered fluid bolus. Will trend vitals. Physical exam as described above. Pt would not fully participate in neurologic exam. Labs unremarkable for significant electrolyte derangement. EKG unremarkable for ischemic findings. Troponin not elevated. HCT remarkable for small chronic right pontine infarct, which was present on MRI obtained on 03 Jun 2018. Ordered Meclizine for symptom relief. Pt reassessed and reports her symptoms have almost completely resolved. Intact rapid alternating movements and heel to hahn. Gait normal. Still concern for possible central vertigo given h/o of infarct and other comorbidities. Will discuss with neurology. 13 Jun 2019 18:15 PM Telephone discussion with Dr. Ramos. Verbally appraised of the pts HPI, ED course, and current plan of management. Suggested repeat MRI. Will evaluate the pt in the morning. Consult requested placed. 13 Jun 2019 18:16 PM Microblog sent to [facility]ist service for admission. Awaiting call back. Repeat troponin not elevated. 13 Jun 2019 19:28 PM Telephone discussion with PRICING INTERN/DANIEL Rowell. Verbally appraised of the pts HPI, ED course, and current plan of management. Will admit pt to telemetry for attending Dr. Rowell. Jacoby Tom M.D., PGY2 Emergency Medicine Resident Past History - Past Medical History Allergies/Adverse Reactions: Allergies Allergy/AdvReac Type Severity Reaction Status Date / Time No Known Allergies Allergy Verified 06/13/19 13:41 Home Medications: Ambulatory Orders Amlodipine Besylate [Norvasc -] 5 mg PO DAILY 12/20/17 Atorvastatin Calcium [Lipitor] 30 mg PO HS 12/20/17 Chlorthalidone [Hygroton -] 25 mg PO DAILY 12/20/17 Clopidogrel Bisulfate [Plavix] 75 mg PO DAILY 12/20/17 Fenofibrate,Micronized [Fenofibrate] 134 mg PO DAILY 12/20/17 Gabapentin 100 mg PO BID 12/20/17 Levothyroxine [Synthroid -] 0.05 mg PO DAILY 12/20/17 Metformin HCl [Glucophage] 1,000 mg PO AM 12/20/17 Metoprolol Succinate [Toprol Xl] 25 mg PO DAILY 12/20/17 Telmisartan [Micardis] 40 mg PO DAILY 12/20/17 Zolpidem Tartrate [Ambien] 10 mg PO HS 12/20/17 Baclofen 10 mg PO DAILY 06/13/19 Cyclobenzaprine HCl [Flexeril 10 mg] 10 mg PO TID PRN 06/13/19 Dapagliflozin Propanediol [Farxiga] 5 mg PO DAILY 06/13/19 Ibuprofen/Famotidine [Duexis 800-26.6 mg Tablet] 1 each PO TID 06/13/19 Metformin HCl [Glucophage] 750 mg PO HS 06/13/19 Pantoprazole Sodium 40 mg PO DAILY 06/13/19 COPD: No DVT: No Diabetes: Yes HTN: Yes Thyroid Disease: Yes Other medical history: VERTIGO - Surgical History Abdominal Surgery: Yes Cholecystectomy: Yes - Immunization History Immunization Up to Date: Yes - Psycho Social/Smoking Cessation Hx Smoking History: Never smoked Have you smoked in the past 12 months: No Information on smoking cessation initiated: No Hx Alcohol Use: No Drug/Substance Use Hx: No Substance Use Type: None *Physical Exam - Vital Signs Last Vital Signs Temp Pulse Resp BP Pulse Ox 97.3 F L 109 H 20 152/84 97 06/13/19 13:36 06/13/19 14:38 06/13/19 14:38 06/13/19 14:38 06/13/19 14:38 ED Treatment Course - LABORATORY CBC & Chemistry Diagram: 06/13/19 14:25 06/13/19 14:25 - ADDITIONAL ORDERS Additional order review: Laboratory Results 06/13/19 06/13/19 14:25 14:25 Sodium 137 Potassium 4.4 Chloride 104 Carbon Dioxide 25 Anion Gap 8 BUN 24.8 H Creatinine 0.7 Est GFR (CKD-EPI)AfAm 98.92 Est GFR (CKD-EPI)NonAf 85.35 Random Glucose 171 H Calcium 9.3 Total Bilirubin 0.3 AST 16 ALT 33 Alkaline Phosphatase 61 Troponin I < 0.02 Total Protein 7.3 Albumin 3.9 06/13/19 14:25 RBC 4.21 MCV 88.7 MCHC 33.7 RDW 13.5 MPV 7.1 L Neutrophils % 80.4 Lymphocytes % 14.5 D Monocytes % 4.1 Eosinophils % 0.6 Basophils % 0.4 - RADIOLOGY Radiology Studies Ordered: Category Date Time Status HEAD CT WITHOUT CONTRAST [CT] Stat CT Scan 06/13/19 15:07 Ordered - Medications Given in the ED: ED Medications Discontinued Medications Generic Name Dose Route Start Last Admin Trade Name Freq PRN Reason Stop Dose Admin Lactated Ringer's 1,000 ml 06/13/19 15:00 06/13/19 15:06 Lactated Ringers Solution IV 06/13/19 15:01 1,000 ml ONCE ONE Administration Meclizine HCl 25 mg 06/13/19 14:21 06/13/19 14:30 Antivert - PO 06/13/19 14:22 25 mg ONCE ONE Administration Discharge - Discharge Information Problems reviewed: Yes Clinical Impression/Diagnosis: Dizziness of unknown etiology Nausea & vomiting Qualifiers: Vomiting type: unspecified Vomiting Intractability: non-intractable Qualified Code(s): R11.2 - Nausea with vomiting, unspecified Condition: Stable - Admission Yes - Follow up/Referral Referrals: Becky Ramsay MD [Primary Care Provider] - - Patient Discharge Instructions - Post Discharge Activity
--- NOTE | 2019-06-13 17:30 | PDOC ---
Documentation entered by Odilia Anglin SCRIBE, acting as scribe for Marimar Krishnan MD. Marimar Krishnan MD: This documentation has been prepared by the Linnette duarte Adrianna, SCRIBE, under my direction and personally reviewed by me in its entirety. I confirm that the documentation accurately reflects all work, treatment, procedures, and medical decision making performed by me. Attending Attestation - Resident Resident Name: Jacoby - ED Attending Attestation I have performed the following: I have examined & evaluated the patient, The case was reviewed & discussed with the resident, I agree w/resident's findings & plan, Exceptions are as noted - HPI HPI: 06/13/19 16:04 Ms Faith is a 73 yo F who presented to the ER with a complaint of sudden onset of dizziness with nausea and vomiting. The dizziness is worse when she opens her eyes and when she changes position. She was preparing lunch when it started. Endorses remote history of a single similar episode. Pt has followed with a neurologist but not recently. Cannot given any further details about neurologic conditions. Pt denies recent illness. Denies recent changes in medications. - Physicial Exam PE: 06/13/19 14:58 GENERAL: The patient is in no acute distress. HEAD: Normal EYES: PERRLA, EOMI, sclera anicteric, conjunctiva clear. ENT: Ears normal, nares patent, oropharynx clear without exudates. Moist mucous membranes. NECK: Normal range of motion, supple LUNGS: Breath sounds equal, clear to auscultation bilaterally. No wheezes, and no crackles. HEART:Regular rate and rhythm, normal S1 and S2 without murmur, rub or gallop. ABDOMEN: Soft, nontender, normoactive bowel sounds. No guarding, no rebound. EXTREMITIES: Normal range of motion, no edema. NEUROLOGICAL: Cranial nerves II through XII grossly intact. Normal speech. No focal neurological deficits. MUSCULOSKELETAL: Back non-tender to palpation, no CVA tenderness SKIN: Warm, Dry, normal turgor, no rashes or lesions noted. - Medical Decision Making 06/13/19 14:58 EKG: ST rate of 107 bpm, axis nml, intervals nml, no st elevation or depression 06/13/19 17:30 Laboratory Tests 06/13/19 06/13/19 06/13/19 14:25 14:25 14:25 WBC 8.2 Hgb 12.6 Hct 37.3 Plt Count 430 BUN 24.8 H Creatinine 0.7 Troponin I < 0.02 CT head pending 06/14/19 10:20 CT head confirms prior area of infarct Pt now feels a bit better Given this patient's history, would rather admit for MRI Call placed to Neuro Clinical impression: BPV vs. posterior infarct
--- NOTE | 2019-06-13 19:51 | HP ---
Admitting History and Physical - Primary Care Physician PCP: - Admission Chief Complaint: Dizziness with N/V History of Present Illness: 73 year old female with PMHx of Hypothyroidism, HTN/HLD, DM, CAD, GERD, Sleep apnea arrived to [facility] ER with complain of sudden onset of dizziness with nausea and vomiting (vomited x3 clear liquid). As per patient dizziness is worse when she opens her eyes and when she changes position ( states feeling better now then when she arrived to ED). Patient stated she had single similar episode ? unclear of time frame and was told she had a stroke. Patient denies recent illness, denies recent changes in medications. Patient denies CP/SOB, Headache, no weakness in UE/ LE extremities. Denies urinary symptoms. 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 (history of old CVA, no residual effect noted) Cardiovascular: Yes: Aneurysm, CAD, HTN, Hyperlipdemia Gastrointestinal: Yes: GERD Endocrine: Yes: Diabetes Mellitus, Hyperthyroidism - Past Surgical History Past Surgical History: Yes: Cholecystectomy - Smoking History Smoking history: Never smoked Have you smoked in the past 12 months: No - Alcohol/Substance Use Hx Alcohol Use: No - Social History Usual Living Arrangement: Yes: With Spouse History of Recent Travel: No Home Medications - Allergies Allergies/Adverse Reactions: Allergies Allergy/AdvReac Type Severity Reaction Status Date / Time No Known Allergies Allergy Verified 06/13/19 13:41 - Home Medications Home Medications: Ambulatory Orders Amlodipine Besylate [Norvasc -] 5 mg PO DAILY 12/20/17 Atorvastatin Calcium [Lipitor] 30 mg PO HS 12/20/17 Chlorthalidone [Hygroton -] 25 mg PO DAILY 12/20/17 Clopidogrel Bisulfate [Plavix] 75 mg PO DAILY 12/20/17 Fenofibrate,Micronized [Fenofibrate] 134 mg PO DAILY 12/20/17 Gabapentin 100 mg PO BID 12/20/17 Levothyroxine [Synthroid -] 0.05 mg PO DAILY 12/20/17 Metformin HCl [Glucophage] 1,000 mg PO AM 12/20/17 Metoprolol Succinate [Toprol Xl] 25 mg PO DAILY 12/20/17 Telmisartan [Micardis] 40 mg PO DAILY 12/20/17 Zolpidem Tartrate [Ambien] 10 mg PO HS 12/20/17 Baclofen 10 mg PO DAILY 06/13/19 Cyclobenzaprine HCl [Flexeril 10 mg] 10 mg PO TID PRN 06/13/19 Dapagliflozin Propanediol [Farxiga] 5 mg PO DAILY 06/13/19 Ibuprofen/Famotidine [Duexis 800-26.6 mg Tablet] 1 each PO TID 06/13/19 Metformin HCl [Glucophage] 750 mg PO HS 06/13/19 Pantoprazole Sodium 40 mg PO DAILY 06/13/19 Family Medical History Family History: Denies Review of Systems - Review of Systems Constitutional: reports: No Symptoms Eyes: reports: No Symptoms HENT: reports: No Symptoms Neck: reports: No Symptoms Cardiovascular: reports: No Symptoms Respiratory: reports: No Symptoms Gastrointestinal: reports: Nausea, Vomiting Genitourinary: reports: No Symptoms Musculoskeletal: reports: No Symptoms Integumentary: reports: No Symptoms Neurological: reports: Dizziness Endocrine: reports: No Symptoms Hematology/Lymphatic: reports: No Symptoms Psychiatric: reports: No Symptoms Physical Examination Vital Signs: Vital Signs Temperature 97.3 F L 06/13/19 19:43 Pulse Rate 120 H 06/13/19 19:43 Respiratory Rate 18 06/13/19 19:43 Blood Pressure 154/69 06/13/19 19:43 O2 Sat by Pulse Oximetry (%) 98 06/13/19 19:43 Constitutional: Yes: No Distress, Calm Eyes: Yes: Conjunctiva Clear, EOM Intact HENT: Yes: Atraumatic, Normocephalic Neck: Yes: Supple, Trachea Midline Cardiovascular: Yes: Regular Rate and Rhythm Respiratory: Yes: Regular, CTA Bilaterally Gastrointestinal: Yes: Normal Bowel Sounds, Soft Musculoskeletal: Yes: WNL Extremities: Yes: WNL Edema: No Peripheral Pulses WNL: Yes Integumentary: Yes: WNL Neurological: Yes: Alert, Oriented Labs: CBC, BMP 06/13/19 14:25 06/13/19 14:25 Imaging - Results Cat Scan: Report Reviewed (Head CT: small chronic right pontine infarct, no acute pathology noted) EKG: Report Reviewed (EKG unremarkable, no ischemic changes, trops negative x2) Problem List - Problems (1) Acute onset of severe vertigo Code(s): R42 - DIZZINESS AND GIDDINESS (2) Dizziness of unknown etiology Code(s): R42 - DIZZINESS AND GIDDINESS (3) Nausea & vomiting Code(s): R11.2 - NAUSEA WITH VOMITING, UNSPECIFIED Qualifiers: Vomiting type: unspecified Vomiting Intractability: non-intractable Qualified Code(s): R11.2 - Nausea with vomiting, unspecified (4) Hyperlipidemia Code(s): E78.5 - HYPERLIPIDEMIA, UNSPECIFIED (5) GERD (gastroesophageal reflux disease) Code(s): K21.9 - GASTRO-ESOPHAGEAL REFLUX DISEASE WITHOUT ESOPHAGITIS (6) Insomnia Code(s): G47.00 - INSOMNIA, UNSPECIFIED (7) Coronary artery disease Code(s): I25.10 - ATHSCL HEART DISEASE OF [place] CORONARY ARTERY W/O ANG PCTRS (8) Diabetes Code(s): E11.9 - TYPE 2 DIABETES MELLITUS WITHOUT COMPLICATIONS (9) Hypertension Code(s): I10 - ESSENTIAL (PRIMARY) HYPERTENSION (10) Influenza B Code(s): J10.1 - FLU DUE TO OTH IDENT INFLUENZA VIRUS W OTH RESP MANIFEST Assessment/Plan 73 year old female with PMHx of Hypothyroidism, HTN/HLD, DM, CAD, GERD, Sleep apnea arrived to [facility] ER with complain of sudden onset of dizziness with nausea and vomiting (vomited x3 clear liquid). As per patient dizziness is worse when she opens her eyes and when she changes positions. #Acute episode of vertigo R/o TIA vs CVA # Dizziness - EKG_ no acute ischemic changes, trops negative x2 - Head CT: small chronic right pontine infarct, no acute pathology - ED given: 1 L LR IVF, antivert 25 mg x1 - will continue with antivert PRN - ED discuss case with Dr. Ramos (neuro), follow up MRI in AM - neurology consult to follow up in AM - patient will continue with lipitor, plavix, Micardis home meds #Nausea/Voimting - vomited x3 at home, no further vomiting noted in ER - continue with IVF x 24 hours - will order zofran PRN # HTN/HLD # CAD -Amlodipine Besylate 5 mg PO DAILY - Atorvastatin Calcium 30 mg PO HS - Chlorthalidone 25 mg PO DAILY - Clopidogrel Bisulfate 75 mg PO DAILY - Fenofibrate 134 mg PO DAILY - Metoprolol Succinate 25 mg PO DAILY -Telmisartan 40 mg PO DAILY # DM # Diabetic neuropathy - Dapagliflozin Propanediol 5 mg PO DAILY - monitor FSBS BID AC - will start novolog sliding scale BID AC - Gabapentin 100 mg PO BID #Hypothyroidism - Levothyroxine 0.05 mg PO DAILY #GERD - Pantoprazole Sodium 40 mg PO DAILY # insomnia Zolpidem Tartrate [Ambien] 10 mg PO HS 12/20/17 Diet: LANEY, NCS, low fat/chol DVT PPX: SCD, start heparin once MRI done in AM Visit type - Emergency Visit Emergency Visit: Yes Care time: The patient presented to the Emergency Department on the above date and was hospitalized for further evaluation of their emergent condition. - New Patient This patient is new to me today: Yes Date on this admission: 06/13/19 - Critical Care Critical Care patient: No
[2019-06-13] MEDS ORDERED: ONDANSETRON 4 MG/2 ML VIAL IVPUSH PRN (20:16)
[2019-06-13] MEDS ORDERED: ACETAMINOPHEN 325 MG TABLET (FP) PO PRN (20:16)
[2019-06-13] MEDS ORDERED: MECLIZINE HCL 25 MG TABLET (FP) PO PRN (20:23)
[2019-06-13] MEDS ORDERED: SODIUM CHLORIDE 1,000 ML IV SCH (20:30)
[2019-06-13] MEDS ORDERED: ZOLPIDEM TARTRATE 5 MG TABLET PO PRN (20:57)
[2019-06-13] MEDS ORDERED: ATORVASTATIN CA 20 MG TABLET (FP) ONE (21:45)
[2019-06-13] MEDS ORDERED: GABAPENTIN 100 MG CAPSULE (FP) ONE (21:46)
[2019-06-13] MEDS ORDERED: ATORVASTATIN CA 10 MG TABLET (FP) ONE (21:46)
[2019-06-13] MEDS: GABAPENTIN 100 MG CAPSULE (FP) PO SCH (21:50)
[2019-06-13] MEDS ORDERED: ATORVASTATIN CA 10 MG TABLET (FP) PO SCH (22:00)
[2019-06-13] MEDS ORDERED: PATIENT'S OWN MEDICATION (NON-FORMULARY) (Zolpidem Tartrate [Ambien] 10 MG) PO SCH (22:00)
[2019-06-14 03:04] VITALS: BMI 26.6
[2019-06-14] MEDS: INSULIN SLIDING SCALE (NOVOLOG) 1 VIAL SQ SCH ×2 (06:06→17:10)
[2019-06-14 06:59] LABS: BASO % 0.6 % (0-2.0); EOS % 1.2 % (0-4.5); HEMATOCRIT 33.1 % (32.4-45.2); HEMOGLOBIN 11.2 GM/dL (10.7-15.3); LYMPH % 27.6 % (8-40); MCH 30.1 pg (25.7-33.7); MCHC 33.8 g/dl (32.0-36.0); MEAN PLT VOLUME 7.2 fl (7.5-11.1); MONO % 6.5 % (3.8-10.2); NEUT % 64.1 % (42.8-82.8); PLATELET COUNT 403 K/MM3 (134-434); RBC 3.72 M/mm3 (3.60-5.2); RDW 13.5 % (11.6-15.6); WHITE BLOOD COUNT 6.6 K/mm3 (4.0-10.0)
[2019-06-14] MEDS ORDERED: LEVOTHYROXINE NA 50 MCG TABLET (FP) PO SCH (07:00)
[2019-06-14 07:17] LABS: BLOOD UREA NITROGEN 21.4 mg/dL (7-18); CREATININE 0.7 mg/dL (0.55-1.3); POTASSIUM 3.8 mmol/L (3.5-5.1)
--- NOTE | 2019-06-14 09:03 | CONSULT ---
Consult - text type - Consultation Consultation Note: Neurology - Admission Chief Complaint: Dizziness with N/V History of Present Illness: 73 year old female with PMHx of Hypothyroidism, HTN/HLD, DM, CAD, GERD, Sleep apnea, arrived to [facility] ER with complaints of sudden onset of dizziness with nausea and vomiting (vomited x3 clear liquid). As per patient, dizziness is worse when she opens her eyes and when she changes position (stated feeling better then when she initially arrived to ED). Patient stated she had single similar episodes, unclear of time frame and was told she had a stroke. Patient denied recent illness, denied recent changes in medications. Patient denied CP/ SOB, headache, no weakness in UE/ LE extremities. Denies urinary symptoms. I was contacted by the emergency room regarding her case. Head ct completed with small chronic right pontine infarct. Advised further imaging with MRI brain. Brain MRI completed, no evidence of acute pathology, indicates small right chronic pontine infarct. This morning, she reports feeling well and no significantdizziness and denies nausea and vomiting.no focal deficits on exam. 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 (history of old CVA, no residual effect noted) Cardiovascular: Yes: Aneurysm, CAD, HTN, Hyperlipdemia Gastrointestinal: Yes: GERD Endocrine: Yes: Diabetes Mellitus, Hyperthyroidism - Past Surgical History Past Surgical History: Yes: Cholecystectomy - Smoking History Smoking history: Never smoked Have you smoked in the past 12 months: No - Alcohol/Substance Use Hx Alcohol Use: No - Social History Usual Living Arrangement: Yes: With Spouse History of Recent Travel: No - Family Medical History Family History: hypertension - Allergies Allergies/Adverse Reactions: NKA - Home Medications Home Medications: Ambulatory Orders Amlodipine Besylate [Norvasc -] 5 mg PO DAILY 12/20/17 Atorvastatin Calcium [Lipitor] 30 mg PO HS 12/20/17 Chlorthalidone [Hygroton -] 25 mg PO DAILY 12/20/17 Clopidogrel Bisulfate [Plavix] 75 mg PO DAILY 12/20/17 Fenofibrate,Micronized [Fenofibrate] 134 mg PO DAILY 12/20/17 Gabapentin 100 mg PO BID 12/20/17 Levothyroxine [Synthroid -] 0.05 mg PO DAILY 12/20/17 Metformin HCl [Glucophage] 1,000 mg PO AM 12/20/17 Metoprolol Succinate [Toprol Xl] 25 mg PO DAILY 12/20/17 Telmisartan [Micardis] 40 mg PO DAILY 12/20/17 Zolpidem Tartrate [Ambien] 10 mg PO HS 12/20/17 Baclofen 10 mg PO DAILY 06/13/19 Cyclobenzaprine HCl [Flexeril 10 mg] 10 mg PO TID PRN 06/13/19 Dapagliflozin Propanediol [Farxiga] 5 mg PO DAILY 06/13/19 Ibuprofen/Famotidine [Duexis 800-26.6 mg Tablet] 1 each PO TID 06/13/19 Metformin HCl [Glucophage] 750 mg PO HS 06/13/19 Pantoprazole Sodium 40 mg PO DAILY 06/13/19 Review of Systems - Review of Systems Constitutional: reports: No Symptoms Eyes: reports: No Symptoms HENT: reports: No Symptoms Neck: reports: No Symptoms Cardiovascular: reports: No Symptoms Respiratory: reports: No Symptoms Gastrointestinal: reports: Nausea, Vomiting Genitourinary: reports: No Symptoms Musculoskeletal: reports: No Symptoms Integumentary: reports: No Symptoms Neurological: reports: Dizziness Endocrine: reports: No Symptoms Hematology/Lymphatic: reports: No Symptoms Psychiatric: reports: No Symptoms Physical Examination Vital Signs: Vital Signs Period Temp Pulse Resp BP Sys/Mix Pulse Ox Last 24 Hr 97.3 F-98.3 F 89-120 17-20 140-155/69-87 96-100 Constitutional: Yes: No Distress, Calm Eyes: Yes: Conjunctiva Clear, EOM Intact HENT: Yes: Atraumatic, Normocephalic Neck: Yes: Supple, Trachea Midline Cardiovascular: Yes: Regular Rate and Rhythm Respiratory: Yes: Regular, CTA Bilaterally Gastrointestinal: Yes: Normal Bowel Sounds, Soft Musculoskeletal: Yes: WNL Extremities: Yes: WNL Edema: No Peripheral Pulses WNL: Yes Integumentary: Yes: WNL Neurological: Yes: Alert, Oriented Labs: CBCD WBC 6.6 K/mm3 (4.0-10.0) 06/14/19 06:00 RBC 3.72 M/mm3 (3.60-5.2) 06/14/19 06:00 Hgb 11.2 GM/dL (10.7-15.3) 06/14/19 06:00 Hct 33.1 % (32.4-45.2) 06/14/19 06:00 MCV 89.0 fl (80-96) 06/14/19 06:00 MCHC 33.8 g/dl (32.0-36.0) 06/14/19 06:00 RDW 13.5 % (11.6-15.6) 06/14/19 06:00 Plt Count 403 K/MM3 (134-434) 06/14/19 06:00 MPV 7.2 fl (7.5-11.1) L 06/14/19 06:00 CMP Sodium 141 mmol/L (136-145) 06/14/19 06:00 Potassium 3.8 mmol/L (3.5-5.1) 06/14/19 06:00 Chloride 108 mmol/L (98-107) H 06/14/19 06:00 Carbon Dioxide 25 mmol/L (21-32) 06/14/19 06:00 Anion Gap 8 MMOL/L (8-16) 06/14/19 06:00 BUN 21.4 mg/dL (7-18) H 06/14/19 06:00 Creatinine 0.7 mg/dL (0.55-1.3) 06/14/19 06:00 Random Glucose 129 mg/dL (74-106) H 06/14/19 06:00 Calcium 9.0 mg/dL (8.5-10.1) 06/14/19 06:00 Total Bilirubin 0.3 mg/dL (0.2-1) 06/13/19 14:25 AST 16 U/L (15-37) 06/13/19 14:25 ALT 33 U/L (13-61) 06/13/19 14:25 Alkaline Phosphatase 61 U/L (45-117) 06/13/19 14:25 Total Protein 7.3 g/dl (6.4-8.2) 06/13/19 14:25 Albumin 3.9 g/dl (3.4-5.0) 06/13/19 14:25 CARDIAC ENZYMES Troponin I < 0.02 ng/ml (0.00-0.05) 06/13/19 18:10 Imaging - Results Cat Scan: Report Reviewed (Head CT: small chronic right pontine infarct, no acute pathology noted) EKG: Report Reviewed (EKG unremarkable, no ischemic changes, trops negative x2) MRI brain; no acute changes, chronic right pontine infarct noted ASSESSMENT/PLAN 73 year old female with PMHx of Hypothyroidism, HTN/HLD, DM, CAD, GERD, Sleep apnea, arrived to [facility] ER with complaints of sudden onset of dizziness with nausea and vomiting (vomited x3 clear liquid). As per patient, dizziness is worse when she opens her eyes and when she changes position (stated feeling better then when she initially arrived to ED). Patient stated she had single similar episodes, unclear of time frame and was told she had a stroke. Patient denied recent illness, denied recent changes in medications. Patient denied CP/ SOB, headache, no weakness in UE/ LE extremities. Denies urinary symptoms. I was contacted by the emergency room regarding her case. Head ct completed with small chronic right pontine infarct. Advised further imaging with MRI brain. Brain MRI completed, no evidence of acute pathology, indicates small right chronic pontine infarct. This morning, she reports feeling well and no significantdizziness and denies nausea and vomiting.no focal deficits on exam. Can continue current antiplatelet regimen of Plavix, monitor blood pressure, maintain normotensive range, monitor glucose maintain euglycemic range. Can provide meclizine to be taken as needed prior to discharge. Neurologically, no further workup indicated is noacute infarcts, specifically none in cerebellar area noted, can follow-up as outpatient.
[2019-06-14] MEDS: GABAPENTIN 100 MG CAPSULE (FP) PO SCH (09:45)
[2019-06-14] MEDS ORDERED: amLODIPine BESYLATE 5 MG TABLET (FP) PO SCH (10:00)
[2019-06-14] MEDS ORDERED: VALSARTAN 160 MG TABLET (UD) PO SCH (10:00)
[2019-06-14] MEDS ORDERED: PANTOPRAZOLE 40 MG TABLET (FP) PO SCH (10:00)
[2019-06-14] MEDS ORDERED: HEPARIN NA (PORCINE) 5,000 UNITS/ML 1ML VIAL SQ SCH (10:00)
[2019-06-14] MEDS ORDERED: CLOPIDOGREL BISULFATE 75 MG TABLET (FP) PO SCH (10:00)
[2019-06-14] MEDS ORDERED: TELMISARTAN 40 MG PO SCH (10:00)
[2019-06-14] MEDS ORDERED: CHLORTHALIDONE 25 MG TABLET PO SCH (10:00)
[2019-06-14] MEDS ORDERED: PATIENT'S OWN MEDICATION (NON-FORMULARY) (Dapagliflozin Propanediol [Farxiga] 5 MG) PO SCH (10:00)
[2019-06-14] MEDS ORDERED: BACLOFEN 10 MG TABLET (FP) PO SCH (10:00)
[2019-06-14] MEDS ORDERED: metoPROLOL SUCCINATE 25 MG TAB.SR.24H (FP) PO SCH (10:00)
[2019-06-14] MEDS ORDERED: FENOFIBRIC ACID 135 MG CAP PO SCH (10:00)
--- NOTE | 2019-06-14 10:13 | CON.CARD ---
Consult Consult Specialty:: Cardiology - History of Present Illness History of Present Illness: 73 year old female with PMHx of Hypothyroidism, HTN/HLD, DM, CAD, GERD, Sleep apnea, arrived to [facility] ER with complaints of sudden onset of dizziness with nausea and vomiting (vomited x3 clear liquid). As per patient, dizziness is worse when she opens her eyes and when she changes position (stated feeling better then when she initially arrived to ED). Patient stated she had single similar episodes, unclear of time frame and was told she had a stroke. Patient denied recent illness, denied recent changes in medications. Patient denied CP/ SOB, headache, no weakness in UE/ LE extremities. Denies urinary symptoms. I was contacted by the emergency room regarding her case. Head ct completed with small chronic right pontine infarct. Advised further imaging with MRI brain. Brain MRI completed, no evidence of acute pathology, indicates small right chronic pontine infarct. This morning, she reports feeling well and no significantdizziness and denies nausea and vomiting.no focal deficits on exam. 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 (history of old CVA, no residual effect noted) Cardiovascular: Yes: Aneurysm, CAD, HTN, Hyperlipdemia Gastrointestinal: Yes: GERD Endocrine: Yes: Diabetes Mellitus, Hyperthyroidism Major events Surgical: s/p bilateral knee repairs (Rt: 12/02; Lt: 12/01) Ongoing medical problems Medical: anxiety and depression arthritis of knees, Rt hip and shoulder; Lt heel spur cervical herniated discs DM HTN hyperlipidemia insomnia obesity osteoporosis hypothyroidism - History Source History Provided By: Patient, Medical Record - Past Medical History 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 (history of old CVA, no residual effect noted) Cardio/Vascular: Yes: Aneurysm, CAD, HTN, Hyperlipdemia Gastrointestinal: Yes: GERD ...: No Endocrine: Yes: Diabetes Mellitus, Hyperthyroidism - Past Surgical History Past Surgical History: Yes: Cholecystectomy - Alcohol/Substance Use Hx Alcohol Use: No - Smoking History Smoking history: Never smoked Have you smoked in the past 12 months: No - Social History History of Recent Travel: No Home Medications - Allergies Allergies/Adverse Reactions: Allergies Allergy/AdvReac Type Severity Reaction Status Date / Time No Known Allergies Allergy Verified 06/13/19 13:41 - Home Medications Home Medications: Ambulatory Orders Amlodipine Besylate [Norvasc -] 5 mg PO DAILY 12/20/17 Atorvastatin Calcium [Lipitor] 30 mg PO HS 12/20/17 Chlorthalidone [Hygroton -] 25 mg PO DAILY 12/20/17 Clopidogrel Bisulfate [Plavix] 75 mg PO DAILY 12/20/17 Fenofibrate,Micronized [Fenofibrate] 134 mg PO DAILY 12/20/17 Gabapentin 100 mg PO BID 12/20/17 Levothyroxine [Synthroid -] 0.05 mg PO DAILY 12/20/17 Metformin HCl [Glucophage] 1,000 mg PO AM 12/20/17 Metoprolol Succinate [Toprol Xl] 25 mg PO DAILY 12/20/17 Telmisartan [Micardis] 40 mg PO DAILY 12/20/17 Zolpidem Tartrate [Ambien] 10 mg PO HS 12/20/17 Baclofen 10 mg PO DAILY 06/13/19 Cyclobenzaprine HCl [Flexeril 10 mg] 10 mg PO TID PRN 06/13/19 Dapagliflozin Propanediol [Farxiga] 5 mg PO DAILY 06/13/19 Ibuprofen/Famotidine [Duexis 800-26.6 mg Tablet] 1 each PO TID 06/13/19 Metformin HCl [Glucophage] 750 mg PO HS 06/13/19 Pantoprazole Sodium 40 mg PO DAILY 06/13/19 Review of Systems - Review of Systems Constitutional: reports: No Symptoms Eyes: reports: No Symptoms HENT: reports: No Symptoms Neck: reports: No Symptoms Cardiovascular: reports: No Symptoms Respiratory: reports: No Symptoms Gastrointestinal: reports: Nausea, Vomiting Genitourinary: reports: No Symptoms Breasts: reports: No Symptoms Reported Musculoskeletal: reports: No Symptoms Integumentary: reports: No Symptoms Neurological: reports: Dizziness, Other (vertigo) Endocrine: reports: No Symptoms Hematology/Lymphatic: reports: No Symptoms Psychiatric: reports: No Symptoms Vital Signs: Vital Signs Temperature 98 F 06/14/19 08:09 Pulse Rate 89 06/14/19 08:09 Respiratory Rate 18 06/14/19 08:09 Blood Pressure 143/87 06/14/19 08:09 O2 Sat by Pulse Oximetry (%) 98 06/14/19 08:09 Constitutional: Yes: Well Nourished, No Distress, Calm Eyes: Yes: WNL, Conjunctiva Clear, EOM Intact HENT: Yes: WNL, Atraumatic, Normocephalic Neck: Yes: WNL, Supple, Trachea Midline Respiratory: Yes: WNL, Regular, CTA Bilaterally Gastrointestinal: Yes: WNL, Normal Bowel Sounds Renal/: Yes: WNL Cardiovascular: Yes: WNL, Regular Rate and Rhythm Musculoskeletal: Yes: WNL Extremities: Yes: WNL Integumentary: Yes: WNL Neurological: Yes: WNL, Alert, Oriented ...Motor Strength: WNL Psychiatric: Yes: WNL, Alert, Oriented - Other Data Labs, Other Data: CBC, BMP 06/14/19 06:00 06/14/19 06:00 Troponin, BNP 06/13/19 06/13/19 14:25 18:10 Troponin I < 0.02 < 0.02 Troponin, BNP 06/13/19 06/13/19 14:25 18:10 Troponin I < 0.02 < 0.02 Imaging - Results EKG: Image Reviewed (s tachy) Problem List - Problems (1) Acute onset of severe vertigo Code(s): R42 - DIZZINESS AND GIDDINESS (2) Dizziness of unknown etiology Code(s): R42 - DIZZINESS AND GIDDINESS (3) GERD (gastroesophageal reflux disease) Code(s): K21.9 - GASTRO-ESOPHAGEAL REFLUX DISEASE WITHOUT ESOPHAGITIS (4) Hyperlipidemia Code(s): E78.5 - HYPERLIPIDEMIA, UNSPECIFIED (5) Insomnia Code(s): G47.00 - INSOMNIA, UNSPECIFIED (6) Nausea & vomiting Code(s): R11.2 - NAUSEA WITH VOMITING, UNSPECIFIED Qualifiers: Vomiting type: unspecified Vomiting Intractability: non-intractable Qualified Code(s): R11.2 - Nausea with vomiting, unspecified (7) Chest pain Code(s): R07.9 - CHEST PAIN, UNSPECIFIED (8) Coronary artery disease Code(s): I25.10 - ATHSCL HEART DISEASE OF [place] CORONARY ARTERY W/O ANG PCTRS (9) Diabetes Code(s): E11.9 - TYPE 2 DIABETES MELLITUS WITHOUT COMPLICATIONS (10) [place] cardiac risk >20% in next 10 years Code(s): Z91.89 - OTH PERSONAL RISK FACTORS, NOT ELSEWHERE CLASSIFIED (11) Hypertension Code(s): I10 - ESSENTIAL (PRIMARY) HYPERTENSION (12) Hypomagnesemia Code(s): E83.42 - HYPOMAGNESEMIA (13) Hypothyroidism Code(s): E03.9 - HYPOTHYROIDISM, UNSPECIFIED (14) Influenza B Code(s): J10.1 - FLU DUE TO OTH IDENT INFLUENZA VIRUS W OTH RESP MANIFEST (15) Obesity Code(s): E66.9 - OBESITY, UNSPECIFIED (16) Syncope Code(s): R55 - SYNCOPE AND COLLAPSE Assessment/Plan dizziness vertigo old cva htn hlp hypothyroidism dm Plan r/o mi telemetry ECHO neurology eval appreciated.
--- NOTE | 2019-06-14 11:19 | DS ---
Physical Examination Vital Signs: Vital Signs Temperature 98 F 06/14/19 08:09 Pulse Rate 89 06/14/19 08:09 Respiratory Rate 18 06/14/19 08:09 Blood Pressure 143/87 06/14/19 08:09 O2 Sat by Pulse Oximetry (%) 98 06/14/19 08:09 Constitutional: Yes: No Distress, Calm Cardiovascular: Yes: Regular Rate and Rhythm Respiratory: Yes: CTA Bilaterally Gastrointestinal: Yes: Normal Bowel Sounds, Soft. No: Tenderness Edema: No Labs: CBC, BMP 06/14/19 06:00 06/14/19 06:00 Discharge Summary Problems reviewed: Yes Reason For Visit: NAUSEOUS/ VOMITING Current Active Problems Acute onset of severe vertigo (Acute) Dizziness of unknown etiology (Acute) GERD (gastroesophageal reflux disease) (Acute) Hyperlipidemia (Acute) Insomnia (Acute) Nausea & vomiting (Acute) Hospital Course: admitted for dizziness CT head normal Echo normal EF, diastolic dysfunction Seen by Neurology and Cardiology ACS ruled out Brain MRI - negative for acute infarcts Stable for dc home Currently no dizziness Condition: Stable - Instructions Referrals: Becky Ramsay MD [Primary Care Provider] - Disposition: HOME - Home Medications Comprehensive Discharge Medication List: Ambulatory Orders Amlodipine Besylate [Norvasc -] 5 mg PO DAILY 12/20/17 Atorvastatin Calcium [Lipitor] 30 mg PO HS 12/20/17 Chlorthalidone [Hygroton -] 25 mg PO DAILY 12/20/17 Clopidogrel Bisulfate [Plavix] 75 mg PO DAILY 12/20/17 Fenofibrate,Micronized [Fenofibrate] 134 mg PO DAILY 12/20/17 Gabapentin 100 mg PO BID 12/20/17 Levothyroxine [Synthroid -] 0.05 mg PO DAILY 12/20/17 Metformin HCl [Glucophage] 1,000 mg PO AM 12/20/17 Metoprolol Succinate [Toprol Xl] 25 mg PO DAILY 12/20/17 Telmisartan [Micardis] 40 mg PO DAILY 12/20/17 Zolpidem Tartrate [Ambien] 10 mg PO HS 12/20/17 Baclofen 10 mg PO DAILY 06/13/19 Cyclobenzaprine HCl [Flexeril 10 mg] 10 mg PO TID PRN 06/13/19 Dapagliflozin Propanediol [Farxiga] 5 mg PO DAILY 06/13/19 Ibuprofen/Famotidine [Duexis 800-26.6 mg Tablet] 1 each PO TID 06/13/19 Metformin HCl [Glucophage] 750 mg PO HS 06/13/19 Pantoprazole Sodium 40 mg PO DAILY 06/13/19
--- NOTE | 2019-06-14 12:44 | ECHO ---
Name: SOPHY BANERJEE Exam:Adult Echocardiogram Study Date: 06/14/2019 11:01 AM Age: 73 yrs Reason For Study: ef Height: 60 in Weight: 136 lb BSA: 1.6 m2 MMode/2D Measurements & Calculations IVSd: 0.90 cm Ao root diam: 2.3 cm LVIDd: 3.6 cm LA dimension: 3.3 cm LVIDs: 2.3 cm LVPWd: 1.1 cm LVPWs: 1.2 cm EDV(Teich): 55.4 ml ESV(Teich): 18.1 ml LVOT diam: 1.7 cm LAV (MOD-bp): 38.0 ml Doppler Measurements & Calculations MV E max jacinto: 35.5 cm/sec Ao V2 max: 137.4 cm/sec MV A max jacinto: 62.7 cm/sec Ao max P.5 mmHg MV E/A: 0.57 MV dec time: 0.07 sec BRENDA(V,D): 1.4 cm2 LV V1 max P.9 mmHg PA V2 max: 135.7 cm/sec LV V1 max: 85.4 cm/sec PA max P.4 mmHg Med Peak E' Jacinto: 5.6 cm/sec Med E/e': 6.4 Lat Peak E' Jacinto: 7.9 cm/sec Lat E/e': 4.5 Procedure A two-dimensional transthoracic echocardiogram with color flow and Doppler was performed. Left Ventricle The left ventricular size, thickness and function are normal. The left ventricular ejection fraction is normal. E/A reversal consistent with but not diagnostic of poor LV compliance. The left ventricular w all motion is normal. Right Ventricle The right ventricle is normal in size and function. Atria Normal left and right atrial size and function. Mitral Valve There is mild mitral valve thickening. There is no mitral valve stenosis. There is trace mitral regur gitation. Tricuspid Valve There is mild tricuspid valve thickening. There is no tricuspid stenosis. There was insufficient TR d etected to calculate RV systolic pressure. Aortic Valve The aortic valve is normal in structure and function. No hemodynamically significant valvular aortic stenosis. No aortic regurgitation is present. Pulmonic Valve The pulmonic valve is not well visualized. Great Vessels The aortic root is normal size. Pericardium/Pleura There is no pericardial effusion. Interpretation Summary The left ventricular size, thickness and function are normal The left ventricular ejection fraction is normal. The left ventricular wall motion is normal. There is trace mitral regurgitation. There was insufficient TR detected to calculate RV systolic pressure. E/A reversal consistent with but not diagnostic of poor LV compliance MD Christopher Mckenzie 06/14/2019 12:44 PM
[2019-06-14 14:55] VITALS: TEMP 98.3
[2019-06-14 16:54] VITALS: BP 134/76; PULSE 88
== END 2019-06-14 17:38 | disposition home or self-care (01) ==
LOC: JER 13:26 → UNDOADMOB 18:19 → JERBED 18:19 → INTOOBSV 18:19 → JERBED 06-14 02:11 → J4W 06-14 02:11 → JERBED 06-14 10:17 → J4W 06-14 10:17
PROVIDERS: ADMIT Internal Medicine; ATTEND Internal Medicine
PROC: 3E0337Z Introduction of Electrolytic and Water Balance Substance into Peripheral Vein, Percutaneous Approach (ICD-10-PCS; principal; 2019-06-14)
PROC: 3E013GC Introduction of Other Therapeutic Substance into Subcutaneous Tissue, Percutaneous Approach (ICD-10-PCS; 2019-06-14)
DX: R42 Dizziness and giddiness (principal); R11.2 Nausea with vomiting, unspecified; I10 Essential (primary) hypertension; E78.5 Hyperlipidemia, unspecified; E11.9 Type 2 diabetes mellitus without complications; E05.90 Thyrotoxicosis, unspecified without thyrotoxic crisis or storm; E83.42 Hypomagnesemia; I25.10 Atherosclerotic heart disease of native coronary artery without angina pectoris; K21.9 Gastro-esophageal reflux disease without esophagitis; G47.30 Sleep apnea, unspecified; G47.00 Insomnia, unspecified; E66.9 Obesity, unspecified; Z68.26 Body mass index [BMI] 26.0-26.9, adult; Z91.89 Other specified personal risk factors, not elsewhere classified; Z86.79 Personal history of other diseases of the circulatory system; Z86.73 Personal history of transient ischemic attack (TIA), and cerebral infarction without residual deficits; Z79.84 Long term (current) use of oral hypoglycemic drugs; Z79.02 Long term (current) use of antithrombotics/antiplatelets
CPT/HCPCS: 36415; 70450-TC; 70551-TC; 80048; 80053; 80061; 82962; 83036; 83721; 84443; 84479; 84484; 85025; 93005; 93010; 93306-TC; 96360; 96361; 96372; 99284-25; G0378; J0475; J1644; J7030

== ENCOUNTER 2020-05-02 13:47 | Emergency (ER) | payer OTHER ==
[2020-05-02 13:54] VITALS: BMI 25.7
--- NOTE | 2020-05-02 16:35 | PDOC ---
Documentation entered by Golden Blanco SCRIBE, acting as scribe for Ariadne Haro MD. Ariadne Haro MD: This documentation has been prepared by the Bella duarte Xhesika, SCRIBE, under my direction and personally reviewed by me in its entirety. I confirm that the documentation accurately reflects all work, treatment, procedures, and medical decision making performed by me. History of Present Illness - General Chief Complaint: CVA/TIA Stated Complaint: R/O STROKE Time Seen by Provider: 05/02/20 14:07 History Source: Patient Exam Limitations: No Limitations - History of Present Illness Initial Comments: 05/02/20 15:51 The patient is a 74 year old female with a significant PMH of who presents to the emergency department for L sided facial tingling and R sided facial droop since yesterday afternoon. Pt also reports difficulty closing her eyes, and drooling from the L side of mouth. Pt denies her is a nurse, who advised her to come to the ED. Pt denies any other neurological complaints. The patient denies chest pain, shortness of breath, headache and dizziness. Denies fever, chills, cough, nausea, vomiting, diarrhea and constipation. Denies dysuria, frequency, urgency and hematuria. Allergies: NKDA NIH Stroke Scale - Last Known Well Date/Time & Onset Date Last Known Well: 05/01/20 Time Last Known Well: 15:00 - Initial Evaluation Level of consciousness: Alert Ask patient the month and their age: Answers both correctly Ask patient to open & close eyes; make fist and let go: Obeys both correctly Best gaze (horizontal eye movement): Normal Visual field testing: No visual field loss Facial paresis (Show teeth/raise eyebrows/close eyes tight): Minor paralysis (flattened nasolabial fold, asymmetry on smiling) Motor Function: Left Arm: Normal Motor Function: Right Arm: Normal (extends arm 90 (or 45) degrees for 10 seconds without drift Motor Function: Left Leg: Normal (extends leg 30 degrees for 5 seconds without drift) Motor Function: Right Leg: Normal (extends leg 30 degrees for 5 seconds without drift) Limb Ataxia: No ataxia Sensory(Use pinprick test arms,legs,trunk,face/side to side): Normal Best language (Describe picture, name items, read sentences): No Aphasia Dysarthria (read several words): Normal articulation Extinction and Inattention: No abnormality - Total Score NIH Stroke Scale Score: 1 Past History - Medical History Allergies/Adverse Reactions: Allergies Allergy/AdvReac Type Severity Reaction Status Date / Time No Known Allergies Allergy Verified 05/02/20 13:54 Home Medications: Ambulatory Orders Amlodipine Besylate [Norvasc -] 5 mg PO DAILY 12/20/17 Atorvastatin Calcium [Lipitor] 40 mg PO HS 12/20/17 Fenofibrate,Micronized [Fenofibrate] 134 mg PO DAILY 12/20/17 Levothyroxine [Synthroid -] 0.05 mg PO DAILY 12/20/17 Metformin HCl [Glucophage] 1,000 mg PO AM 12/20/17 Metoprolol Succinate [Toprol Xl] 50 mg PO DAILY 12/20/17 Telmisartan [Micardis] 40 mg PO DAILY 12/20/17 Zolpidem Tartrate [Ambien] 5 mg PO HS PRN 12/20/17 Cyclobenzaprine HCl [Flexeril 10 mg] 10 mg PO TID PRN 06/13/19 Dapagliflozin Propanediol [Farxiga] 5 mg PO DAILY 06/13/19 Ibuprofen/Famotidine [Duexis 800-26.6 mg Tablet] 1 each PO TID 06/13/19 Metformin HCl [Glucophage] 1,000 mg PO HS 06/13/19 Ascorbic Acid [Vitamin C] 1,000 mg PO DAILY 05/02/20 Aspirin [ASA -] 81 mg PO DAILY 05/02/20 Cholecalciferol (Vitamin D3) [Vitamin D3] 5,000 unit PO DAILY 05/02/20 Cyanocobalamin (Vitamin B-12) [Vitamin B-12] 1,000 mcg PO DAILY 05/02/20 Garlic [Garlic Oil] 1,000 mg PO DAILY 05/02/20 Ibuprofen/Famotidine [Duexis 800-26.6 mg Tablet] 1 each PO DAILY PRN 05/02/20 Ubidecarenone [Co Q-10] 10 mg PO DAILY 05/02/20 Anemia: Yes COPD: No DVT: No Diabetes: Yes HTN: Yes Hypercholesterolemia: Yes Seizures: Yes Thyroid Disease: Yes - Surgical History Abdominal Surgery: Yes Cholecystectomy: Yes - Reproductive History Is Patient Now?: No - Immunization History Immunization Up to Date: Yes - Psycho-Social/Smoking History Smoking History: Never smoked Have you smoked in the past 12 months: No Information on smoking cessation initiated: No - Substance Abuse Hx (Audit-C & DAST Scrn) How often the patient has a drink containing alcohol: Never Score: In Men: 4 or > Positive; In Women: 3 or > Positive: 0 Screen Result (Pos requires Nsg. Audit-10AR): Negative In the last yr the pt used illegal drug/Rx for NonMed reason: No Score: Yes response is considered Positive: 0 Screen Result (Positive result requires Nsg. DAST-10): Negative Review of Systems - Review of Systems Able to Perform ROS?: Yes Comments:: 05/02/20 15:59 GENERAL/CONSTITUTIONAL: No fever or chills. No weakness. HEAD, EYES, EARS, NOSE AND THROAT: No change in vision. No ear pain or discharge. No sore throat. CARDIOVASCULAR: No chest pain or shortness of breath. RESPIRATORY: No cough, wheezing, or hemoptysis. GASTROINTESTINAL: No nausea, vomiting, diarrhea or constipation. GENITOURINARY: No dysuria, frequency, or change in urination. MUSCULOSKELETAL: No joint or muscle swelling or pain. No neck or back pain. SKIN: No rash NEUROLOGIC: No headache, vertigo, loss of consciousness. +L sided facial tingling. +R sided facial droop. +Difficulty closing her eyes. +Drooling from L side of mouth ENDOCRINE: No increased thirst. No abnormal weight change. HEMATOLOGIC/LYMPHATIC: No anemia, easy bleeding, or history of blood clots. ALLERGIC/IMMUNOLOGIC: No hives or skin allergy. *Physical Exam - Vital Signs Last Vital Signs Temp Pulse Resp BP Pulse Ox 98.5 F 86 19 124/70 98 05/02/20 15:47 05/02/20 15:47 05/02/20 15:47 05/02/20 15:47 05/02/20 15:47 - Physical Exam 05/02/20 16:00 GENERAL: Awake, alert, and fully oriented, in no acute distress HEAD: No signs of trauma EYES: PERRLA, EOMI, sclera anicteric, conjunctiva clear ENT: Auricles normal inspection, hearing grossly normal, nares patent, oropharynx clear without exudates. Moist mucosa NECK: Normal ROM, supple, no lymphadenopathy, JVD, or masses LUNGS: Breath sounds equal, clear to auscultation bilaterally. No wheezes, and no crackles HEART: Regular rate and rhythm, normal S1 and S2, no murmurs, rubs or gallops ABDOMEN: Soft, nontender, normoactive bowel sounds. No guarding, no rebound. No masses EXTREMITIES: Normal range of motion, no edema. No clubbing or cyanosis. No cords, erythema, or tenderness NEUROLOGICAL: Cranial nerves II through XII grossly intact. +R sided facial droop that involves both mouths and R eye SKIN: Warm, Dry, normal turgor, no rashes lesions noted. Medical Decision Making - Medical Decision Making 05/02/20 16:58 Pt presents to the ED with subtle R sided facial droop that appears to involve the eyelid and the corner of the mouth. These symptoms are most likely secondary to a bells palsy, but given that she also has L sided numbness and that the eyelid findings are subtle, will check CT head and MRI to evaluate for CVA. Will likely discharge home if negative. Discharge - Discharge Information Problems reviewed: Yes Clinical Impression/Diagnosis: Facial tingling, Jack's palsy Condition: Stable Disposition: HOME - Follow up/Referral Referrals: Omar Smart MD [Staff Physician] - Torres Ramos MD [Staff Physician] - Latoya Norwood MD [Staff Physician] - - Patient Discharge Instructions Patient Printed Discharge Instructions: DI for Numbness/Tingling Additional Instructions: You were seenin the Emergency Department for evaluation of facial tingling. Your MRI was negative for acute stroke. Review the handout provided at discharge. Follow up with the Neurology referrals given within a week. Return to the Emergency Department if you develop fevers, chest pain, trouble breathing, new changes in strength/sensation, vision changes, hearing changes, taste changes, worsening symptoms, or any new/concerning symptoms. - Post Discharge Activity
--- NOTE | 2020-05-02 20:27 | PDOC ---
*Physical Exam - Vital Signs Last Vital Signs Temp Pulse Resp BP Pulse Ox 98.0 F 104 H 16 166/88 100 05/02/20 16:59 05/02/20 16:59 05/02/20 16:59 05/02/20 16:59 05/02/20 16:59 ED Treatment Course - ADDITIONAL ORDERS Additional order review: Laboratory Results 05/02/20 17:52 POC Glucometer 102 05/02/20 17:52 POC Glucometer 102 Medical Decision Making - Medical Decision Making Pt received as sign out pending MRI 2/2 new facial tingling and drooling MRI was negative for acute stroke or change Pt feels improved that MRI is neg Plan for D/C w/ Neurology f/u Discharge instructions and return precautions given Pt in agreement and verbalized understanding Dispo: home 05/02/20 20:21 Discharge - Discharge Information Problems reviewed: Yes Clinical Impression/Diagnosis: Facial tingling Condition: Stable Disposition: HOME - Admission No - Follow up/Referral Referrals: Torres Ramos MD [Staff Physician] - Latoya Norwood MD [Staff Physician] - Omar Smart MD [Staff Physician] - - Patient Discharge Instructions Patient Printed Discharge Instructions: DI for Numbness/Tingling Additional Instructions: You were seenin the Emergency Department for evaluation of facial tingling. Your MRI was negative for acute stroke. Review the handout provided at discharge. Follow up with the Neurology referrals given within a week. Return to the Emergency Department if you develop fevers, chest pain, trouble breathing, new changes in strength/sensation, vision changes, hearing changes, taste changes, worsening symptoms, or any new/concerning symptoms. - Post Discharge Activity
[2020-05-02 20:29] VITALS: BP 160/78; PULSE 85; TEMP 98.6
== END 2020-05-02 20:37 | disposition home or self-care (01) ==
LOC: JER 13:47
DX: R20.2 Paresthesia of skin (principal)
CPT/HCPCS: 70450-TC; 70551-TC; 82962; 99285-25

== ENCOUNTER 2024-02-29 06:46 | Emergency (ER) | payer OTHER ==
[2024-02-29 06:55] VITALS: BMI 29.2
[2024-02-29] MEDS ORDERED: ACETAMINOPHEN INJECTION 100 ML IVPB ONE (10:32)
[2024-02-29] MEDS: ACETAMINOPHEN 1000 MG/100 ML BAG IVPB ONE (10:52)
[2024-02-29 10:54] LABS: PH,URINE 7.5 (5.0-8.0); URINE APPEARANCE CLEAR; URINE BILIRUBIN NEGATIVE (NEGATIVE); URINE COLOR YELLOW; URINE GLUCOSE (UA) 2+ (NEGATIVE); URINE KETONE NEGATIVE (NEGATIVE); URINE LEUK ESTERASE NEGATIVE (NEGATIVE); URINE NITRITE NEGATIVE (NEGATIVE); URINE PROTEIN NEGATIVE (NEGATIVE); URINE UROBILINOGEN 0.2 mg/dL (0.2-1.0)
[2024-02-29 10:55] LABS: BASO % 0.5 % (0-2.0); EOS % 1.4 % (0-4.5); HEMATOCRIT 40.2 % (32.4-45.2); HEMOGLOBIN 13.5 GM/dL (10.7-15.3); LYMPH % 17.2 % (8-40); MCH 30.4 pg (25.7-33.7); MCHC 33.6 g/dl (32.0-36.0); MEAN CELL VOLUME 90.5 fl (80-96); MEAN PLT VOLUME 6.8 fl (7.5-11.1); MONO % 5.1 % (3.8-10.2); NEUT % 75.8 % (42.8-82.8); PLATELET COUNT 382 10^3/uL (134-434); RBC 4.44 M/mm3 (3.60-5.2); RDW 13.9 % (11.6-15.6); WHITE BLOOD COUNT 8.5 K/mm3 (4.0-10.0)
[2024-02-29 11:02] LABS: INR 0.92 (0.83-1.09); PROTHROMBIN TIME (PATIENT) 10.6 SEC (9.7-13.0)
[2024-02-29 11:04] LABS: ACTIVATED PTT 30.9 SECONDS (25.2-36.5)
[2024-02-29 11:26] LABS: POTASSIUM 4.6 mmol/L (3.5-5.1)
[2024-02-29 11:28] LABS: ALBUMIN 3.9 g/dl (3.4-5.0); CALCIUM 9.6 mg/dL (8.5-10.1)
[2024-02-29 11:29] LABS: BLOOD UREA NITROGEN 17.1 mg/dL (7-18)
[2024-02-29 11:31] LABS: CREATININE 0.6 mg/dL (0.55-1.3)
[2024-02-29 11:32] LABS: BILIRUBIN,TOTAL 0.3 mg/dL (0.2-1); TOT PROT 7.5 g/dl (6.4-8.2)
[2024-02-29 15:07] VITALS: BP 153/78; PULSE 89; RESP 16; TEMP 97.9
== END 2024-02-29 15:08 | disposition home or self-care (01) ==
LOC: JER 06:46
PROC: 3E033NZ Introduction of Analgesics, Hypnotics, Sedatives into Peripheral Vein, Percutaneous Approach (ICD-10-PCS; principal; 2024-02-29)
DX: S20.211A Contusion of right front wall of thorax, initial encounter (principal); R10.11 Right upper quadrant pain; R07.81 Pleurodynia; W01.0XXA Fall on same level from slipping, tripping and stumbling without subsequent striking against object, initial encounter; Z20.822 Contact with and (suspected) exposure to COVID-19
CPT/HCPCS: 0241U-QW; 36415; 71046-TC-FY; 74177-TC; 80053; 81003; 83690; 84484; 85025; 85610; 85730; 86850; 86900; 86901; 87086; 93005; 93010; 96374; 99285-25; J0131; Q9967